=== PATIENT | female | born 1945 | race Caucasian/White ===

== ENCOUNTER 2016-12-28 11:30 | Emergency (ER) | payer MEDICARE, BC ==
[2016-12-28] MEDS ORDERED: Sodium Chloride 0.9% 10 ML Syringe FLUSH PRN (11:48)
[2016-12-28] MEDS ORDERED: Aspirin 81 MG Tab.Chew PO ONE (12:07)
--- NOTE | 2016-12-28 12:15 | EDM.PDOC ---
ED HPI GENERAL MEDICAL PROBLEM - General Chief Complaint: General Stated Complaint: shoulder pain Time Seen by Provider: 12/28/16 11:56 Source of Information: Reports: Patient History Limitations: Reports: No limitations - History of Present Illness INITIAL COMMENTS - FREE TEXT/NARRATIVE: Patient comes in by private vehicle for complaint of not feeling well. She has not felt like her usual self since Saturday evening, two days ago. At that time she noticed intermittent tightness/discomfort located across the back of her shoulders. Usually at same time she would develop bilateral arm tingling. No weakness. Symptoms would last up to 30min then resolve. Changing position/ breathing/moving did nothing to help the pain nor did it worsen it. She has felt intermittently SOB but denies feeling sweaty. No fevers. No recent illnesses/med changes/falls/trauma. She says she was a [employer] yesterday and had one episode nausea and vomiting afterwards. OK today, ate breakfast. Has felt a little lightheaded on/off but no darien dizziness. No changes. ROS otherwise negative. No history of similar issues in past. No one else sick at home. No cardiac history. Upper Shoulder Pain Score (Numeric/FACES): 5 - Related Data Allergies Allergy/AdvReac Type Severity Reaction Status Date / Time azithromycin [From Zithromax] Allergy Nausea and Verified 02/22/16 17:43 Vomiting cefprozil [From Cefzil] Allergy Nausea and Verified 02/22/16 17:43 Vomiting ciprofloxacin [From Cipro] Allergy Nausea and Verified 02/22/16 17:43 Vomiting ciprofloxacin HCl Allergy Nausea and Verified 02/22/16 17:43 [From Cipro] Vomiting methylprednisolone Allergy Nausea and Verified 02/22/16 17:43 [From Medrol] Vomiting ondansetron Allergy UNKNOWN Verified 08/14/16 14:57 [From Zofran (as hydrochloride)] Penicillins Allergy Hives Verified 02/22/16 17:43 Sulfa (Sulfonamide Allergy Nausea and Verified 02/22/16 17:43 Antibiotics) Vomiting Home Meds: Home Meds Meclizine [Antivert] 25 mg PO Q6H PRN 11/24/13 [History] Sennosides [Ex-Lax] 15 mg PO BID 11/24/13 [History] Omeprazole 20 mg PO DAILY PRN 01/11/16 [History] Levothyroxine 25 mcg PO ACBREAKFAST 12/28/16 [History] Linaclotide [Linzess] 145 mcg PO DAILY 12/28/16 [History] Nitrofurantoin Monohyd/M-Cryst [Macrobid 100 mg Capsule] 100 mg PO Q12HR #10 capsule 12/28/16 [Rx] Potassium Chloride 10 meq PO DAILY #30 tablet.er 12/28/16 [Rx] Promethazine [Phenergan] 25 mg PO Q8H PRN #6 tablet 12/28/16 [Rx] Past Medical History Gastrointestinal History: Reports: Chronic constipation Genitourinary History: Reports: Other (see below) Other Genitourinary History: history of urostomy 1984 Neurological History: Reports: Migraines Oncologic (Cancer) History: Reports: Cervix - Infectious Disease History Infectious Disease History: Reports: Chicken pox, Measles, Mumps - Past Surgical History Female Surgical History: Reports: Other (see below) Other Female Surgeries/Procedures: 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 ED EXAM, GENERAL - Physical Exam Exam: See Below Exam Limited By: No limitations General Appearance: alert, WD/WN, no apparent distress Eye Exam: bilateral eye: EOMI, PERRL Ears: normal external exam, normal canal, hearing grossly normal, normal TMs Nose: normal inspection, no blood Throat/Mouth: Normal inspection, Normal lips, Normal oropharynx, Normal voice, No airway compromise Head: atraumatic, normocephalic Neck: normal inspection, supple, non-tender, full range of motion. No: lymphadenopathy (L), lymphadenopathy (R) Respiratory/Chest: no respiratory distress, lungs clear, normal breath sounds, no accessory muscle use, chest non-tender Cardiovascular: normal peripheral pulses, regular rate, rhythm, no edema, no JVD , no murmur Peripheral Pulses: 2+: radial (L), radial (R) GI/Abdominal: normal bowel sounds, soft, non tender, no distention (Female) Exam: Deferred Rectal (Female) Exam: Deferred Back Exam: normal inspection Extremities: normal inspection, normal range of motion, non-tender, no pedal edema, normal capillary refill, other (palpation of neck/shoulders/back did not reproduce patient's complaint. ) Neurological: alert, oriented, normal cognition, normal gait, no motor/sensory deficits Psychiatric: normal affect, normal mood Skin Exam: Warm, Dry, Intact, Normal color EKG INTERPRETATION EKG Date: 12/28/16 Time: 11:32 Rhythm: NSR Rate (beats/min): 71 [place]: normal P-wave: present QRS: normal ST-T: normal QT: normal Comparison: NA - no prior EKG (sinus arrhythmia) Course - Vital Signs Last Recorded V/S: Last Vital Signs Temp 37.0 C 12/28/16 11:31 Pulse 60 12/28/16 13:40 Resp 18 12/28/16 13:40 BP 130/75 12/28/16 13:40 Pulse Ox 100 12/28/16 13:40 - Orders/Labs/Meds Orders: Active Orders 24 hr Category Date Time Status Cardiac Monitoring [RC] . DIRECTED Care 12/28/16 11:49 Active EKG Documentation Completion [RC] ASDIRECTED Care 12/28/16 11:48 Active EKG Documentation Completion [RC] URGENT Care 12/28/16 11:47 Active Oxygen Therapy, ED [RC] ASDIRECTED Care 12/28/16 11:48 Active Chest 1V Frontal [CR] Stat Exams 12/28/16 11:47 Taken CULTURE URINE [RM] Stat Lab 12/28/16 12:40 Received Saline Lock Insert [OM.PC] Routine Oth 12/28/16 11:48 Ordered Labs: Laboratory Tests 12/28/16 12/28/16 12/28/16 Range/Units 11:43 11:43 11:43 WBC 7.2 (4.0-10.2) K/uL RBC 4.42 (3.77-5.09) M/uL Hgb 13.5 (11.7-15.5) g/dL Hct 41.1 (34.0-46.0) % MCV 93.0 (84.0-98.0) fL MCH 30.5 (28.2-33.3) pg MCHC 32.8 (31.7-36.0) g/dL RDW 13.7 (11.2-14.1) % Plt Count 334 (150-350) K/uL Neut % (Auto) 59.1 (45.0-80.0) % Lymph % (Auto) 31.5 (10.0-50.0) % [place] % (Auto) 6.9 (2.0-14.0) % Eos % (Auto) 1.9 (0.0-5.0) % Baso % (Auto) 0.6 (0.0-2.0) % Neut # (Auto) 4.25 (1.40-7.00) K/uL Lymph # (Auto) 2.27 (0.50-3.50) K/uL [place] # (Auto) 0.50 (0.00-1.00) K/uL Eos # (Auto) 0.14 (0.00-0.50) K/uL Baso # (Auto) 0.04 (0.00-0.20) K/uL PT 10.7 (9.8-11.7) SEC INR 1.0 APTT 27.3 (23.5-30.0) SEC D-Dimer, Quantitative (0-400) ng/mL Sodium 140 (136-145) mmol/L Potassium 3.4 L (3.5-5.1) mmol/L Chloride 102 (98-107) mmol/L Carbon Dioxide 26.5 (21.0-32.0) mmol/L BUN 15 (7-18) mg/dL Creatinine 0.94 (0.51-1.17) mg/dL Est Cr Clr Drug Dosing 47.40 mL/min Estimated GFR (MDRD) 59 mL/min Glucose 110 H (74-106) mg/dL Lactic Acid (0.4-2.0) mmol/L Calcium 8.9 (8.5-10.1) mg/dL Magnesium 2.1 (1.8-2.4) mg/dL Total Bilirubin 0.4 (0.2-1.0) mg/dL AST 14 L (15-37) U/L ALT 22 (12-78) U/L Alkaline Phosphatase 75 (46-116) IU/L Creatine Kinase 57 (26-308) U/L Creatine Kinase Index 1.2 (0.0-2.5) % CK-MB (CK-2) 0.70 (0.00-3.60) ng/mL Troponin I 0.000 (0.000-0.056) ng/mL [id number]-Csydvxrexbg Pept 47 (0-125) pg/mL Total Protein 7.6 (6.4-8.2) g/dL Albumin 3.7 (3.4-5.0) g/dL Amylase (25-115) U/L Lipase (73-393) U/L Specimen Type Urine Color Urine Appearance Urine pH (5.0-9.0) Ur Specific [place] (1.005-1.030) Urine Protein (NEGATIVE) mg/dL Urine Glucose (UA) (NEGATIVE) mg/dL Urine Ketones (NEGATIVE) mg/dL Urine Occult Blood (NEGATIVE) Urine Nitrite (NEGATIVE) Urine Bilirubin (NEGATIVE) Urine Urobilinogen (0.2-1.0) E.U./dL Ur Leukocyte Esterase (NEGATIVE) Urine RBC /HPF Urine WBC /HPF Ur Epithelial Cells /LPF Urine Bacteria (NONE TO FEW) /HPF 12/28/16 12/28/16 12/28/16 Range/Units 11:43 11:43 11:45 WBC (4.0-10.2) K/uL RBC (3.77-5.09) M/uL Hgb (11.7-15.5) g/dL Hct (34.0-46.0) % MCV (84.0-98.0) fL MCH (28.2-33.3) pg MCHC (31.7-36.0) g/dL RDW (11.2-14.1) % Plt Count (150-350) K/uL Neut % (Auto) (45.0-80.0) % Lymph % (Auto) (10.0-50.0) % [place] % (Auto) (2.0-14.0) % Eos % (Auto) (0.0-5.0) % Baso % (Auto) (0.0-2.0) % Neut # (Auto) (1.40-7.00) K/uL Lymph # (Auto) (0.50-3.50) K/uL [place] # (Auto) (0.00-1.00) K/uL Eos # (Auto) (0.00-0.50) K/uL Baso # (Auto) (0.00-0.20) K/uL PT (9.8-11.7) SEC INR APTT (23.5-30.0) SEC D-Dimer, Quantitative 281 (0-400) ng/mL Sodium (136-145) mmol/L Potassium (3.5-5.1) mmol/L Chloride (98-107) mmol/L Carbon Dioxide (21.0-32.0) mmol/L BUN (7-18) mg/dL Creatinine (0.51-1.17) mg/dL Est Cr Clr Drug Dosing mL/min Estimated GFR (MDRD) mL/min Glucose (74-106) mg/dL Lactic Acid 1.7 (0.4-2.0) mmol/L Calcium (8.5-10.1) mg/dL Magnesium (1.8-2.4) mg/dL Total Bilirubin (0.2-1.0) mg/dL AST (15-37) U/L ALT (12-78) U/L Alkaline Phosphatase (46-116) IU/L Creatine Kinase (26-308) U/L Creatine Kinase Index (0.0-2.5) % CK-MB (CK-2) (0.00-3.60) ng/mL Troponin I (0.000-0.056) ng/mL Nzo-A-Dovsthgqflw Pept (0-125) pg/mL Total Protein (6.4-8.2) g/dL Albumin (3.4-5.0) g/dL Amylase 63 (25-115) U/L Lipase 164 (73-393) U/L Specimen Type Urine Color Urine Appearance Urine pH (5.0-9.0) Ur Specific [place] (1.005-1.030) Urine Protein (NEGATIVE) mg/dL Urine Glucose (UA) (NEGATIVE) mg/dL Urine Ketones (NEGATIVE) mg/dL Urine Occult Blood (NEGATIVE) Urine Nitrite (NEGATIVE) Urine Bilirubin (NEGATIVE) Urine Urobilinogen (0.2-1.0) E.U./dL Ur Leukocyte Esterase (NEGATIVE) Urine RBC /HPF Urine WBC /HPF Ur Epithelial Cells /LPF Urine Bacteria (NONE TO FEW) /HPF 12/28/16 Range/Units 12:20 WBC (4.0-10.2) K/uL RBC (3.77-5.09) M/uL Hgb (11.7-15.5) g/dL Hct (34.0-46.0) % MCV (84.0-98.0) fL MCH (28.2-33.3) pg MCHC (31.7-36.0) g/dL RDW (11.2-14.1) % Plt Count (150-350) K/uL Neut % (Auto) (45.0-80.0) % Lymph % (Auto) (10.0-50.0) % [place] % (Auto) (2.0-14.0) % Eos % (Auto) (0.0-5.0) % Baso % (Auto) (0.0-2.0) % Neut # (Auto) (1.40-7.00) K/uL Lymph # (Auto) (0.50-3.50) K/uL [place] # (Auto) (0.00-1.00) K/uL Eos # (Auto) (0.00-0.50) K/uL Baso # (Auto) (0.00-0.20) K/uL PT (9.8-11.7) SEC INR APTT (23.5-30.0) SEC D-Dimer, Quantitative (0-400) ng/mL Sodium (136-145) mmol/L Potassium (3.5-5.1) mmol/L Chloride (98-107) mmol/L Carbon Dioxide (21.0-32.0) mmol/L BUN (7-18) mg/dL Creatinine (0.51-1.17) mg/dL Est Cr Clr Drug Dosing mL/min Estimated GFR (MDRD) mL/min Glucose (74-106) mg/dL Lactic Acid (0.4-2.0) mmol/L Calcium (8.5-10.1) mg/dL Magnesium (1.8-2.4) mg/dL Total Bilirubin (0.2-1.0) mg/dL AST (15-37) U/L ALT (12-78) U/L Alkaline Phosphatase (46-116) IU/L Creatine Kinase (26-308) U/L Creatine Kinase Index (0.0-2.5) % CK-MB (CK-2) (0.00-3.60) ng/mL Troponin I (0.000-0.056) ng/mL Wyy-J-Xpnxxievpss Pept (0-125) pg/mL Total Protein (6.4-8.2) g/dL Albumin (3.4-5.0) g/dL Amylase (25-115) U/L Lipase (73-393) U/L Specimen Type Urin[place]ad Urine Color Yellow Urine Appearance Slightly cloudy Urine pH 5.0 (5.0-9.0) Ur Specific [place] 1.010 (1.005-1.030) Urine Protein Negative (NEGATIVE) mg/dL Urine Glucose (UA) Negative (NEGATIVE) mg/dL Urine Ketones Negative (NEGATIVE) mg/dL Urine Occult Blood Trace-lysed H (NEGATIVE) Urine Nitrite Negative (NEGATIVE) Urine Bilirubin Negative (NEGATIVE) Urine Urobilinogen 0.2 (0.2-1.0) E.U./dL Ur Leukocyte Esterase Trace H (NEGATIVE) Urine RBC 0-5 /HPF Urine WBC 10-20 H /HPF Ur Epithelial Cells Few /LPF Urine Bacteria Few (NONE TO FEW) /HPF Meds: Medications Discontinued Medications Generic Name Dose Route Start Last Admin Trade Name Freq PRN Reason Stop Dose Admin Aspirin 324 mg 12/28/16 12:07 12/28/16 12:11 Aspirin PO 12/28/16 12:08 324 mg ONETIME ONE Administration Sodium Chloride 10 ml 12/28/16 11:48 Saline Flush FLUSH ASDIRECTED PRN Keep Vein Open - Radiology Interpretation Free Text/Narrative:: Chest film unremarkable for acute changes. - Re-Assessments/Exams Free Text/Narrative Re-Assessment/Exam: WBC, DDimer, Troponin, Chem, Amylase, Lipase, EKG, UA performed. All overall unremarkable except for mildly decreased K and 10-20 WBC per HPF (UA). Symptoms possibly secondary to early/mild UTI. Cannot rule out other possible causes however. Plan at this time is to treat UTI with Macrobid and have patient monitor symptoms for change. Patient agreeable with plan. Recommended follow up in a week for recheck of K. She is to follow up if she has worsening symptoms or if not improved by Saturday. Departure - Departure Time of Disposition: 13:44 Disposition: Home, Self-Care 01 Condition: good Clinical Impression: UTI (urinary tract infection) Nausea & vomiting Qualifiers: Vomiting type: unspecified Vomiting Intractability: unspecified Qualified Code( s): R11.2 - Nausea with vomiting, unspecified Prescriptions: Nitrofurantoin Monohyd/M-Cryst [Macrobid 100 mg Capsule] 100 mg PO Q12HR #10 capsule Potassium Chloride 10 meq PO DAILY #30 tablet.er Promethazine [Phenergan] 25 mg PO Q8H PRN #6 tablet PRN Reason: Nausea Referrals: Radha Armstrong PA [Primary Care Provider] - Forms: ED Department Discharge Additional Instructions: See if symptoms improve over the next few days. If they worsen, follow up in ER or at clinic. If symptoms are not gone by Saturday, follow up at clinic. Watch for changing symptoms that may indicate something other than UTI as cause of problem. - My Orders Last 24 Hours: My Active Orders 12/28/16 11:47 EKG Documentation Completion [RC] URGENT Chest 1V Frontal [CR] Stat 12/28/16 11:48 EKG Documentation Completion [RC] ASDIRECTED Oxygen Therapy, ED [RC] ASDIRECTED Saline Lock Insert [OM.PC] Routine 12/28/16 11:49 Cardiac Monitoring [RC] . DIRECTED 12/28/16 12:40 CULTURE URINE [RM] Stat - Assessment/Plan Last 24 Hours: My Active Orders 12/28/16 11:47 EKG Documentation Completion [RC] URGENT Chest 1V Frontal [CR] Stat 12/28/16 11:48 EKG Documentation Completion [RC] ASDIRECTED Oxygen Therapy, ED [RC] ASDIRECTED Saline Lock Insert [OM.PC] Routine 12/28/16 11:49 Cardiac Monitoring [RC] . DIRECTED 12/28/16 12:40 CULTURE URINE [RM] Stat
[2016-12-28 15:20] VITALS: BP 130/75
== END 2016-12-28 14:05 | disposition home or self-care (01) ==
LOC: LL.ED 11:30
DX: N39.0 Urinary tract infection, site not specified (principal); R11.2 Nausea with vomiting, unspecified; G43.909 Migraine, unspecified, not intractable, without status migrainosus; Z88.1 Allergy status to other antibiotic agents; Z88.2 Allergy status to sulfonamides; Z88.5 Allergy status to narcotic agent; Z88.0 Allergy status to penicillin; Z88.8 Allergy status to other drugs, medicaments and biological substances; Z98.890 Other specified postprocedural states
CPT/HCPCS: 36000; 36415; 71010; 80053; 81001; 82150; 82550; 82553; 83605; 83690; 83735; 83880; 84484; 85025; 85379; 85610; 85730; 87086; 87088; 87186; 93005; 99284; A9270; 99283

== ENCOUNTER 2017-11-10 17:07 | Emergency (ER) | payer MEDICARE, BC ==
[2017-11-10 17:18] VITALS: BP 128/78
[2017-11-10] MEDS ORDERED: Sodium Chloride 0.9% 10 ML Syringe FLUSH PRN (17:51)
--- NOTE | 2017-11-10 17:58 | EDM.PDOC ---
ED HPI GENERAL MEDICAL PROBLEM - General Chief Complaint: General Stated Complaint: vomiting, chills, body aches, fever Time Seen by Provider: 11/10/17 17:54 Source of Information: Reports: Patient, Family () - History of Present Illness INITIAL COMMENTS - FREE TEXT/NARRATIVE: Patient 72-year-old who states that yesterday she started not feeling well she started having body aches fever chills frequency with discomfort nausea and vomiting was brought in by for evaluation last emesis was about an hour ago Onset: Gradual Duration: Hour(s):, Getting Worse Location: Reports: Head (Pounding headaches today), Abdomen (Denies diarrhea but nausea and vomiting) Quality: Reports: Ache, Throbbing Severity: Moderate Improves with: Reports: None Worsens with: Reports: Movement Context: Reports: Other (Illness) Associated Symptoms: Reports: Fever/Chills, Headaches, Loss of Appetite, Nausea/ Vomiting headache Pain Score (Numeric/FACES): 10 - Related Data Allergies Allergy/AdvReac Type Severity Reaction Status Date / Time azithromycin [From Zithromax] Allergy Nausea and Verified 11/10/17 17:18 Vomiting cefprozil [From Cefzil] Allergy Nausea and Verified 11/10/17 17:18 Vomiting ciprofloxacin [From Cipro] Allergy Nausea and Verified 11/10/17 17:18 Vomiting ciprofloxacin HCl Allergy Nausea and Verified 11/10/17 17:18 [From Cipro] Vomiting methylprednisolone Allergy Nausea and Verified 11/10/17 17:18 [From Medrol] Vomiting ondansetron Allergy UNKNOWN Verified 11/10/17 17:18 [From Zofran (as hydrochloride)] Penicillins Allergy Hives Verified 11/10/17 17:18 Sulfa (Sulfonamide Allergy Nausea and Verified 11/10/17 17:18 Antibiotics) Vomiting Home Meds: Home Meds Meclizine [Antivert] 25 mg PO Q6H PRN 11/24/13 [History] Levothyroxine 25 mcg PO ACBREAKFAST 12/28/16 [History] Linaclotide [Linzess] 145 mcg PO DAILY PRN 12/28/16 [History] Promethazine [Phenergan] 25 mg PO Q8H PRN #6 tablet 12/28/16 [Rx] Past Medical History HEENT History: Reports: Impaired Vision, Other (See Below) Other HEENT History: wears glasses, Gastrointestinal History: Reports: Chronic Constipation Genitourinary History: Reports: Other (See Below) Other Genitourinary History: history of urostomy 1985 Neurological History: Reports: Migraines, Vertigo Oncologic (Cancer) History: Reports: Cervix - Infectious Disease History Infectious Disease History: Reports: Chicken Pox, Measles, Mumps - Past Surgical History HEENT Surgical History: Reports: Other (See Below) Other HEENT Surgeries/Procedures: sinus surgery GI Surgical History: Reports: Appendectomy Female Surgical History: Reports: Hysterectomy, Oophorectomy, Other (See Below) Other Female Surgeries/Procedures: cervical cancer, pt has only one remaining ovary Social & Family History - Tobacco Use Smoking Status *Q: Never Smoker Second Hand Smoke Exposure: No - Caffeine Use Caffeine Use: Reports: Coffee - Alcohol Use Days Per Week of Alcohol Use: 0 - Recreational Drug Use Recreational Drug Use: No ED ROS GENERAL - Review of Systems Review Of Systems: See Below ED EXAM, GENERAL - Physical Exam Exam: See Below Course - Vital Signs Last Recorded V/S: Last Vital Signs Temp 97.8 F 11/10/17 17:08 Pulse 111 H 11/10/17 17:08 Resp 16 11/10/17 17:08 BP 128/78 11/10/17 17:08 Pulse Ox 99 11/10/17 17:08 - Orders/Labs/Meds Orders: Active Orders 24 hr Category Date Time Status Sodium Chloride 0.9% [Normal Saline] 1,000 ml Med 11/10/17 19:15 Active IV ASDIRECTED Sodium Chloride 0.9% [Saline Flush] Med 11/10/17 17:51 Active 10 ml FLUSH ASDIRECTED PRN cefTRIAXone [Rocephin] 1 gm Med 11/10/17 20:00 Ordered Sodium Chloride 0.9% [Normal Saline] 100 ml IV Q24H Saline Lock Insert [OM.PC] Stat Oth 11/10/17 17:51 Ordered Medication Orders Sodium Chloride (Normal Saline) 1,000 mls @ 500 mls/hr IV ASDIRECTED THANH Ceftriaxone Sodium 1 gm/ (Sodium Chloride) 100 mls @ 200 mls/hr IV Q24H THANH Sodium Chloride (Saline Flush) 10 ml FLUSH ASDIRECTED PRN PRN Reason: Keep Vein Open Last Admin: 11/10/17 18:18 Dose: 10 ml Labs: Laboratory Tests 11/10/17 11/10/17 11/10/17 Range/Units 18:05 18:05 18:25 WBC 13.5 H (4.0-10.2) K/uL RBC 4.01 (3.77-5.09) M/uL Hgb 12.6 D (11.7-15.5) g/dL Hct 37.1 (34.0-46.0) % MCV 92.5 (84.0-98.0) fL MCH 31.4 (28.2-33.3) pg MCHC 34.0 (31.7-36.0) g/dL RDW 12.7 (11.2-14.1) % Plt Count 261 (150-350) K/uL Neut % (Auto) 89.9 H (45.0-80.0) % Lymph % (Auto) 6.6 L (10.0-50.0) % [place] % (Auto) 3.3 (2.0-14.0) % Eos % (Auto) 0.1 (0.0-5.0) % Baso % (Auto) 0.1 (0.0-2.0) % Neut # (Auto) 12.17 H (1.40-7.00) K/uL Lymph # (Auto) 0.89 (0.50-3.50) K/uL [place] # (Auto) 0.45 (0.00-1.00) K/uL Eos # (Auto) 0.02 (0.00-0.50) K/uL Baso # (Auto) 0.01 (0.00-0.20) K/uL Sodium 134 L (136-145) mmol/L Potassium 3.9 (3.5-5.1) mmol/L Chloride 100 (98-107) mmol/L Carbon Dioxide 26.6 (21.0-32.0) mmol/L BUN 15 (7-18) mg/dL Creatinine 0.89 (0.51-1.17) mg/dL Est Cr Clr Drug Dosing 49.34 mL/min Estimated GFR (MDRD) > 60 mL/min Glucose 119 H (74-106) mg/dL Calcium 9.2 (8.5-10.1) mg/dL Total Bilirubin 0.9 (0.2-1.0) mg/dL AST 16 (15-37) U/L ALT 17 (12-78) U/L Alkaline Phosphatase 66 (46-116) IU/L Total Protein 7.4 (6.4-8.2) g/dL Albumin 3.4 (3.4-5.0) g/dL Specimen Type Urincc Urine Color Yellow Urine Appearance Slightly cloudy Urine pH 7.0 (5.0-9.0) Ur Specific [place] 1.020 (1.005-1.030) Urine Protein Negative (NEGATIVE) mg/dL Urine Glucose (UA) Negative (NEGATIVE) mg/dL Urine Ketones 15 H (NEGATIVE) mg/dL Urine Occult Blood Small H (NEGATIVE) Urine Nitrite Negative (NEGATIVE) Urine Bilirubin Negative (NEGATIVE) Urine Urobilinogen 0.2 (0.2-1.0) E.U./dL Ur Leukocyte Esterase Negative (NEGATIVE) Urine RBC 5-10 H /HPF Urine WBC 5-10 H /HPF Ur Epithelial Cells Few /LPF Urine Bacteria Few (NONE TO FEW) /HPF Urine Mucus Few H (NEGATIVE) /LPF Meds: Medications Generic Name Dose Route Start Last Admin Trade Name Freq PRN Reason Stop Dose Admin Sodium Chloride 1,000 mls @ 500 mls/hr 11/10/17 19:15 Normal Saline IV ASDIRECTED THANH Ceftriaxone Sodium 1 gm/ 100 mls @ 200 mls/hr 11/10/17 20:00 Sodium Chloride IV Q24H THANH Sodium Chloride 10 ml 11/10/17 17:51 11/10/17 18:18 Saline Flush FLUSH 10 ml ASDIRECTED PRN Administration Keep Vein Open Discontinued Medications Generic Name Dose Route Start Last Admin Trade Name Freq PRN Reason Stop Dose Admin Sodium Chloride 1,000 mls @ 250 mls/hr 11/10/17 18:00 11/10/17 18:11 Normal Saline IV 250 mls/hr ASDIRECTED THANH Administration Promethazine HCl 12.5 mg/ 100.5 mls @ 400 mls/hr 11/10/17 18:08 11/10/17 18: 12 Sodium Chloride IV 11/10/17 18:23 400 mls/hr ONETIME ONE Administration Ketorolac Tromethamine 15 mg 11/10/17 19:02 11/10/17 19:10 Toradol IVPUSH 11/10/17 19:03 15 mg ONETIME ONE Administration Departure - Departure Time of Disposition: 20:03 Disposition: Home, Self-Care 01 Condition: Fair Clinical Impression: Dehydration, UTI, Urinary tract infectious disease - Discharge Information Instructions: Nausea and Vomiting, Adult Referrals: Radha Armstrong PA [Primary Care Provider] - Forms: ED Department Discharge Care Plan Goals: Patient allergic to most antibiotics will give her Rocephin 1 g IM daily for 3 days also patient will be given Phenergan for nausea vomiting 25 mg 1 tablet every 6 hours when necessary - My Orders Last 24 Hours: My Active Orders 11/10/17 17:51 Sodium Chloride 0.9% [Saline Flush] 10 ml FLUSH ASDIRECTED PRN Saline Lock Insert [OM.PC] Stat 11/10/17 19:15 Sodium Chloride 0.9% [Normal Saline] 1,000 ml IV ASDIRECTED 11/10/17 20:00 cefTRIAXone [Rocephin] 1 gm Sodium Chloride 0.9% [Normal Saline] 100 ml IV Q24H - Assessment/Plan Last 24 Hours: My Active Orders 11/10/17 17:51 Sodium Chloride 0.9% [Saline Flush] 10 ml FLUSH ASDIRECTED PRN Saline Lock Insert [OM.PC] Stat 11/10/17 19:15 Sodium Chloride 0.9% [Normal Saline] 1,000 ml IV ASDIRECTED 11/10/17 20:00 cefTRIAXone [Rocephin] 1 gm Sodium Chloride 0.9% [Normal Saline] 100 ml IV Q24H
[2017-11-10] MEDS ORDERED: Sodium Chloride 0.9% 1,000 ML IV SCH ×2 (18:00→19:15)
[2017-11-10] MEDS ORDERED: Promethazine 12.5 MG in Sodium Chloride 0.9% 100 ML IV ONE (18:08)
[2017-11-10 18:29] LABS: CHLORIDE,CL 100 mmol/L (98-107); SODIUM,NA 134 mmol/L (136-145)
[2017-11-10] MEDS ORDERED: Ketorolac 30 MG/ML SDV IVPUSH ONE (19:02)
[2017-11-10] MEDS ORDERED: cefTRIAXone 1 GM in Sodium Chloride 0.9% 100 ML IV SCH (20:00)
== END 2017-11-10 21:20 | disposition home or self-care (01) ==
LOC: LL.ED 17:07
DX: E86.0 Dehydration (principal); N39.0 Urinary tract infection, site not specified; Z88.1 Allergy status to other antibiotic agents; Z88.0 Allergy status to penicillin; Z88.2 Allergy status to sulfonamides; Z88.8 Allergy status to other drugs, medicaments and biological substances; Z79.899 Other long term (current) drug therapy
CPT/HCPCS: 36000; 36415; 80053; 81001; 85025; 96361; 96365; 96367; 96375; 99284; J0696; J1885; J2550; J7030; J7050; 99283

== ENCOUNTER 2018-03-04 15:25 | Observation (INO) | payer MEDICARE, BC ==
[2018-03-04] MEDS ORDERED: Famotidine 20 MG/2 ML SDV IVPUSH ONE (15:33)
[2018-03-04] MEDS ORDERED: Aspirin 81 MG Tab.Chew CHEW ONE (15:33)
[2018-03-04] MEDS ORDERED: Sodium Chloride 0.9% 10 ML Syringe FLUSH PRN ×2 (15:33→19:14)
[2018-03-04] MEDS ORDERED: Ticagrelor 90 MG Tab PO ONE (15:33)
--- NOTE | 2018-03-04 15:33 | EDM.PDOC ---
ED HPI GENERAL MEDICAL PROBLEM - General Chief Complaint: Chest Pain Stated Complaint: CHEST PAIN Time Seen by Provider: 03/04/18 15:25 Source of Information: Reports: Patient, Family (Sister), Old Records ([facility] chart/EMR) History Limitations: Reports: No Limitations - History of Present Illness INITIAL COMMENTS - FREE TEXT/NARRATIVE: The patient was brought to the emergency room via private automobile by her sister for evaluation of 04/08 retrosternal chest pressure associated with nonspecific fever and chills and possible mild diaphoresis with symptoms starting at about 4 AM this morning. Her chest pain did radiate to her neck, shoulders bilaterally, and mid posterior thoracic region with some bilateral paresthesias. The patient denies any heart flutter, dizziness, orthostasis, orthopnea, recent decreased exercise tolerance, or any other anginal-type symptoms. No recent history of abdominal pain, heartburn, nausea, diarrhea, melena, gross hematochezia, or any food intolerance, including fatty foods, etc.. She denies any recent gross hematuria, colic, or other UTI symptoms. The patient also denies any recent cough, wheezing, dyspnea, etc.. No history of recent headaches, visual changes, diplopia, change in mental status, or other change in neurological status. Onset: Today, Gradual Onset Date: 03/04/18 Onset Time: 04:00 Duration: Constant, Getting Worse Location: Reports: Neck, Chest, Back, Upper Extremity, Left, Upper Extremity, Right, Radiates to (As above). Denies: Head, Face, Abdomen, Pelvis Quality: Reports: Pressure Severity: Moderate Improves with: Reports: None Worsens with: Reports: None Context: Reports: Other (As above) Associated Symptoms: Reports: Chest Pain, Diaphoresis, Fever/Chills ( Temperature not measured). 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 SAFETY MANAGER: Reports: Other (see below) (None) Middle Chest Pain Score (Numeric/FACES): 7 - Related Data Allergies Allergy/AdvReac Type Severity Reaction Status Date / Time azithromycin [From Zithromax] Allergy Nausea and Verified 11/10/17 17:18 Vomiting cefprozil [From Cefzil] Allergy Nausea and Verified 11/10/17 17:18 Vomiting ciprofloxacin [From Cipro] Allergy Nausea and Verified 11/10/17 17:18 Vomiting ciprofloxacin HCl Allergy Nausea and Verified 11/10/17 17:18 [From Cipro] Vomiting methylprednisolone Allergy Nausea and Verified 11/10/17 17:18 [From Medrol] Vomiting ondansetron Allergy UNKNOWN Verified 11/10/17 17:18 [From Zofran (as hydrochloride)] Penicillins Allergy Hives Verified 11/10/17 17:18 Sulfa (Sulfonamide Allergy Nausea and Verified 11/10/17 17:18 Antibiotics) Vomiting Home Meds: Home Meds Meclizine [Antivert] 25 mg PO Q6H PRN 11/24/13 [History] Levothyroxine 25 mcg PO ACBREAKFAST 12/28/16 [History] Linaclotide [Linzess] 145 mcg PO DAILY PRN 12/28/16 [History] Promethazine [Phenergan] 25 mg PO Q8H PRN #6 tablet 12/28/16 [Rx] Past Medical History HEENT History: Reports: Allergic Rhinitis, Impaired Vision, Other (See Below). Denies: Cataract, Glaucoma, Macular Degeneration, Retinal Detachment Other HEENT History: Patient wears glasses. Cardiovascular History: Reports: CAD, High Cholesterol, Syncope, Other (See Below). Denies: Afib, Aneurysm, Arrhythmia, Blood Clots/VTE/DVT, Heart Failure , Heart Murmur, Hypertension, NC, PVD Other Cardiovascular History: Moderate to severe hyperlipidemia. Near syncopal episode in 2010 Respiratory History: Reports: None, Intubation, Previous. Denies: Asthma, Bronchitis, Recurrent, COPD, Intubation, Difficult, PE, Pneumonia, Recurrent, Pneumothorax, Sleep Apnea, TB Gastrointestinal History: Reports: Chronic Constipation, Gastritis, GERD, Other (See Below). Denies: Celiac Disease, Cholelithiasis, Colon Polyp, Diverticulosis, Fecal Incontinence, GI Bleed, Helicobacter Pylori, Irritable Bowel Syndrome, PUD Other Gastrointestinal History: GERD with gastritis and esophagitis. 9 hepatic cyst Genitourinary History: Reports: UTI, Recurrent. 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 Denies: Dysfunctional Uterine Bleeding, Endometriosis, Fibroids : 4 Para: 4 LMP (Approximate): Other (See Below) Other OB/BYN History: Full term without complications during pregnancies or deliveries. Surgical menopause as below. Right ovarian cyst. History of cervical cancer as below with no radiation or chemotherapy required Musculoskeletal History: Reports: Arthritis, Back Pain, Chronic, Osteoarthritis , Osteoporosis, Other (See Below). Denies: Amputation, Fracture, Gout, Neck Pain, Chronic, RA, SLE Other Musculoskeletal History: Scoliosis. Neurological History: Reports: Headaches, Chronic, Migraines, Vertigo, Other ( See Below). 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 Denies: Abuse, Victim of, ADD, ADHD, Addiction, Psych Hospitalization(s), PTSD, Suicide Attempt, Suicidal Ideation Endocrine/Metabolic History: Reports: Hypothyroidism, Osteopenia, Osteoporosis. Denies: Diabetes, Gestational, Diabetes, Type I, Diabetes, Type II, Diabetes Mellitus, Type 3c, IDDM Hematologic History: Reports: Anemia, Blood Transfusion(s), Other (See Below) Other Hematologic History: Transfusion of 2 units of packed red blood cells post hysterectomy. Immunologic History: Reports: None. Denies: AIDS, HIV, Immunosuppression, SLE Oncologic (Cancer) History: Reports: Cervix, Other (See Below). Denies: Basal Cell Carcinoma, Breast, Colon, Hodgkin's Lymphoma, Leukemia, Lymphoma, Malignant Melanoma, Metastatic, Non-Hodgkin's Lymphoma, Ovarian, Squamous Cell Carcinoma, Uterine Other Oncologic History: Cervical cancer as above with hysterectomy as below required. Dermatologic History: Reports: None. Denies: Eczema, Psoriasis - Infectious Disease History Infectious Disease History: Reports: Chicken Pox, Measles, Mumps. Denies: C- Difficile, Helicobacter Pylori, Meningitis, Mononucleosis, MRSA, Pertussis ( Whooping Cough), Rubella, Scarlet Fever, Shingles, TB, VRE - Past Surgical History Head Surgeries/Procedures: Reports: None HEENT Surgical History: Reports: Naso-Sinus Surgery, Oral Surgery, Other (See Below). Denies: Adenoidectomy, Cataract Surgery, Detached Retina, Eye Surgery, Laser Surgery, LASIK, Myringotomy w Tube(s), Tonsillectomy Other HEENT Surgeries/Procedures: [place] teeth extraction 4 in the 1980s. Sinus surgery in September 2015. Cardiovascular Surgical History: Reports: None. Denies: Varicose Respiratory Surgical History: Reports: None. Denies: Thoracentesis GI Surgical History: Reports: Appendectomy, Colonoscopy, EGD, Other (See Below) . Denies: Cholecystectomy, Hernia, Abdominal, Hernia, Inguinal, Hernia Repair/ Other, Polypectomy Other GI Surgeries/Procedures: Appendectomy and abdominal exploratory surgery at age 17. Rectal fissure repair in about 2006. EGD was negative H. pylori biopsy and concurrent colonoscopy on 10/25/11 Female Surgical History: Reports: Hysterectomy, Oophorectomy, Tubal Ligation , Other (See Below). Denies: Breast Biopsy, D&C Other Female Surgeries/Procedures: Complete hysterectomy with left-sided nephrectomy secondary to cervical cancer at the [facility] in June 1985. Bilateral tubal ligation in 1980. Urostomy in 1984 Endocrine Surgical History: Reports: None. Denies: Thyroid Biopsy Neurological Surgical History: Reports: None. Denies: C-Spine, Discectomy, Intracranial, Laminectomy, Lumbar Spine, Sacral Spine, Scoliosis, Spinal Fusion , Thoracic Spine, Vertebroplasty Musculoskeletal Surgical History: Reports: None. Denies: Arthroscopic Procedure , Carpal Tunnel, Ganglion Cyst, Joint Replacement, ORIF, Shoulder Surgery Oncologic Surgical History: Reports: None Dermatological Surgical History: Reports: None - Past Imaging History Past Imaging History: Reports: Carotid US (06/28/16), CAT Scan (CT of the sinuses on 08/20/13. CT of the head on 06/28/16, 02/22/16, and 11/24/13. CTA of the chest on 02/14/16. CT of the abdomen and pelvis on 02/14/16.), MRA (MRA of the brain and neck on 12/01/13), MRI (MRI of the brain on 12/01/13), Stress Testing (Cardiolite stress test on 06/25/13 with ejection fraction of 69% with previous evaluation on 11/23/10.), Ultrasound (Bladder ultrasound on 03/17/13. Left breast ultrasound on 11/08/11.) Social & Family History - Family History HEENT: Reports: Allergic Rhinitis, Cataract, Macular Degeneration, Other (See Below) Other HEENT Family History: Father with nasal polyps and allergic rhinitis. Father with macular degeneration. Mother with cataracts. Cardiac: Reports: Bypass, CAD, Heart Failure, High Cholesterol, Hypertension, Other (See Below). Denies: Afib, Aneurysm, Arrhythmia, Blood Clots/VTE/DVT, Heart Murmur, NC, Syncope Other Cardiac Family History: Mother with four-vessel CABG at age 80 with fatal CHF at age 89. No history of NC. Hyperlipidemia in 3 brothers and 1 sister. 2 brothers with hypertension. Respiratory: Reports: None. Denies: Asthma, COPD, PE, Pneumothorax, Sleep Apnea GI: Reports: Inflammatory Bowel Disease, Pancreatitis, Other (See Below). Denies: Celiac Disease, Cholelithiasis, Colon Polyps, GERD, GI bleed Other GI Family History: Daughter with ulcerative colitis. Pancreatic cancer with pancreatitis in 2 maternal great aunts as below. : Reports: None. Denies: Dialysis, Renal Calculus, Renal Disease/ Insufficiency OBGYN: Reports: None. Denies: Endometriosis, Fibroids, Recurrent Spontaneous Musculoskeletal: Reports: Arthritis, Osteoarthritis. Denies: RA, SLE Neurological: Reports: CVA, Other (See Below) Other Neurological Family History: Paternal grandfather with CVA in his 70s fatal secondary to subsequent complications a few years later. Psychiatric: Reports: None. Denies: Abuse, Victim of, ADD, ADHD, Anxiety, Bipolar, Psych Hospitalization(s), PTSD, Suicide Attempt Endocrine/Metabolic: Reports: Diabetes, type II, Other (See Below). Denies: Diabetes, Gestational, Diabetes, Type I, Diabetes Mellitus, Type 3c, Hypothyroidism, IDDM Other Endocrine/Metabolic Family History: Brother with diabetes mellitus Hematologic: Reports: None. Denies: Anemia, SLE Immunologic: Reports: None. Denies: AIDS, HIV, SLE Dermatologic: Reports: None. Denies: Eczema, Psoriasis Oncologic: Reports: Metastatic, Pancreatic, Skin, Other (See Below) Other Oncologic Family History: Maternal grandfather from unknown type of cancer possibly hepatic with secondary pulmonary metastases fatal in his 60s. He did use tobacco. 2 paternal uncles with unknown type of fatal cancer in their 60s although one with apparent bone cancer and another with unknown primary but metastatic in nature. Maternal great aunts 2 with fatal pancreatic cancer in their 90s. Brother with unknown type of skin cancer. - Tobacco Use Smoking Status *Q: Never Smoker Tobacco Use Within Last Twelve Months: No Used Tobacco, but Quit: No Smoking Cessation Information Provided To Patient: No Second Hand Smoke Exposure: No Second Hand Smoke Education Provided: No - Caffeine Use Caffeine Use: Reports: Coffee (10 cups per day), Soda (1 soda per week). Denies : Energy Drinks, Tea - Alcohol Use Alcohol Use History: Yes Days Per Week of Alcohol Use: 0 Number of Drinks Per Day: 1 Total Drinks Per Week: 0 Total Drinks Per Week Comment: One beer usually for holidays. No previous DWIs, problems with alcohol abuse, etc. Alcohol Use in Last Twelve Months: Yes Alcohol Use Frequency: Rarely - Recreational Drug Use Recreational Drug Use: No Drug Use in Last 12 Months: No Recreational Drug Type: Denies: Amphetamines (Speed), Cocaine, Heroin, Inhalants (Glues, Solvents, Aerosols), LSD (Acid), Marijuana/Hashish, Methamphetamine, Morphine, Oxycodone - Living Situation & Occupation Living situation: Reports: (1972, 4 children) Occupation: Retired (Retired from [employer] at age 59) ED ROS GENERAL - Review of Systems Review Of Systems: ROS reveals no pertinent complaints other than HPI. ED EXAM, GENERAL - Physical Exam Exam: See Below Exam Limited By: No Limitations General Appearance: Alert, WD/WN, No Apparent Distress Eye Exam: Bilateral Eye: EOMI, Normal Inspection (No Nystagmus. Patient wearing glasses), PERRL Ears: Normal External Exam, Normal Canal, Hearing Grossly Normal, Normal TMs Nose: Normal Inspection, Normal Mucosa, No Blood Throat/Mouth: Normal Inspection, Normal Lips, Normal Teeth, Normal Gums, Normal Oropharynx, Normal Voice, No Airway Compromise. No: Dysphagia, Perioral Cyanosis Head: Atraumatic, Normocephalic. No: Facial Swelling, Facial Tenderness, Sinus Tenderness Neck: Supple, Non-Tender, Full Range of Motion, Carotid Bruit (Borderline mild carotid bruits). No: Lymphadenopathy (L), Lymphadenopathy (R), Thyromegaly Respiratory/Chest: No Respiratory Distress, Lungs Clear, Normal Breath Sounds, No Accessory Muscle Use, Chest Non-Tender. No: Rales, Pleural Rub, Retractions Cardiovascular: Normal Peripheral Pulses, Regular Rate, Rhythm, No Edema, No Gallop, No JVD, No Murmur, No Rub. No: Gallop/S3, Gallop/S4, Friction Rub Peripheral Pulses: 2+: Radial (L), Radial (R), Dorsalis Pedis (L), Dorsalis Pedis (R) GI/Abdominal: Normal Bowel Sounds, Soft, Non-Tender, No Organomegaly, No Distention, No Abnormal Bruit, No Mass, Pelvis Stable. No: Guarding (Female) Exam: Deferred Rectal (Female) Exam: Deferred Back Exam: Normal Inspection, Full Range of Motion, Other (Mild scoliosis). No : CVA Tenderness (L), CVA Tenderness (R), Muscle Spasm Extremities: Normal Inspection, Normal Range of Motion, Non-Tender, No Pedal Edema, Normal Capillary Refill. No: Rusty's Sign Neurological: Alert, Oriented, CN II-XII Intact, Normal Cognition, Normal Gait, Normal Reflexes (Negative Babinski's), No Motor/Sensory Deficits Psychiatric: Normal Affect, Normal Mood Skin Exam: Warm, Dry, Intact, Normal Color, No Rash. No: Lymphangitis, Wound/ Incision Lymphatic: No Adenopathy EKG INTERPRETATION EKG Date: 03/04/18 Time: 15:41 Rhythm: NSR Rate (Beats/Min): 65 [place]: Normal (Neutral) P-Wave: Present (Diffuse biphasic P waves mild. Pulmonary hypertension by EKG) QRS: Normal (QRS interval of 0.07 seconds with new T-wave inversions in leads V1 and V2) ST-T: Other (As above) QT: Normal ME/PQ Interval: 0.18 seconds Comparison: Change From Previous EKG (As above since 02/28/16) EKG Interpretation Comments: 1. New anterior wall cardiac ischemia 2. Pulmonary hypertension by EKG 3. Left atrial enlargement Course - Vital Signs Last Recorded V/S: Last Vital Signs Temp 36.7 C 03/04/18 15:25 Pulse 65 03/04/18 16:45 Resp 16 03/04/18 16:58 BP 137/68 03/04/18 16:58 Pulse Ox 100 03/04/18 16:58 Vital Signs - 24 hr 03/04/18 03/04/18 03/04/18 15:25 15:30 15:45 Temperature [ 36.7 C Oral] Pulse, 76 71 72 Peripheral [ Pulse Oximetry] Respiratory 18 18 20 Rate Blood Pressure 155/78 H 138/67 124/66 [Left Arm] O2 Sat by Pulse 98 99 100 Oximetry 03/04/18 03/04/18 03/04/18 16:15 16:30 16:45 Temperature [ Oral] Pulse, 67 70 65 Peripheral [ Pulse Oximetry] Respiratory 16 17 20 Rate Blood Pressure 140/64 144/71 H 136/69 [Left Arm] O2 Sat by Pulse 100 100 100 Oximetry - Orders/Labs/Meds Orders: Active Orders 24 hr Category Date Time Status Cardiac Monitoring [RC] . DIRECTED Care 03/04/18 15:33 Active EKG Documentation Completion [RC] ASDIRECTED Care 03/04/18 15:33 Active Oxygen Therapy, ED [RC] CONTINUOUS Care 03/04/18 15:33 Active Peripheral IV Care [RC] . DIRECTED Care 03/04/18 15:33 Active Pulse Oximetry [RC] CONTINUOUS Care 03/04/18 15:33 Active Up With Assistance [RC] PFP Care 03/04/18 15:33 Active Vital Signs [RC] PFP Care 03/04/18 15:33 Active Nothing per Oral Now Diet [DIET] Diet 03/04/18 Breakfast Active Chest 1V Frontal [CR] Stat Exams 03/04/18 15:33 Taken Sodium Chloride 0.9% [Saline Flush] Med 03/04/18 15:33 Active 10 ml FLUSH ASDIRECTED PRN Obtain Past Medical Record [OM.PC] Urgent Oth 03/04/18 15:33 Active Peripheral IV Insertion Adult [OM.PC] Stat Oth 03/04/18 15:33 Ordered Resuscitation Status Stat Resus Stat 03/04/18 15:33 Ordered Medication Orders Sodium Chloride (Saline Flush) 10 ml FLUSH ASDIRECTED PRN PRN Reason: Keep Vein Open Labs: Laboratory Tests 03/04/18 03/04/18 03/04/18 Range/Units 15:35 15:35 15:35 WBC 6.4 (4.0-10.2) K/uL RBC 4.28 (3.77-5.09) M/uL Hgb 13.2 (11.7-15.5) g/dL Hct 39.4 (34.0-46.0) % MCV 92.1 (84.0-98.0) fL MCH 30.8 (28.2-33.3) pg MCHC 33.5 (31.7-36.0) g/dL RDW 13.5 (11.2-14.1) % Plt Count 315 (150-350) K/uL Neut % (Auto) 50.5 (45.0-80.0) % Lymph % (Auto) 39.1 (10.0-50.0) % [place] % (Auto) 8.9 (2.0-14.0) % Eos % (Auto) 0.9 (0.0-5.0) % Baso % (Auto) 0.6 (0.0-2.0) % Neut # (Auto) 3.22 (1.40-7.00) K/uL Lymph # (Auto) 2.50 (0.50-3.50) K/uL [place] # (Auto) 0.57 (0.00-1.00) K/uL Eos # (Auto) 0.06 (0.00-0.50) K/uL Baso # (Auto) 0.04 (0.00-0.20) K/uL PT 10.4 (9.8-11.7) SEC INR 1.0 APTT 26.5 (22.1-29.8) SEC D-Dimer, Quantitative 272 (0-400) ng/mL Sodium (136-145) mmol/L Potassium (3.5-5.1) mmol/L Chloride (98-107) mmol/L Carbon Dioxide (21.0-32.0) mmol/L BUN (7-18) mg/dL Creatinine (0.51-1.17) mg/dL Est Cr Clr Drug Dosing Estimated GFR (MDRD) mL/min Glucose (74-106) mg/dL Lactic Acid (0.4-2.0) mmol/L Uric Acid (2.6-7.2) mg/dL Calcium (8.5-10.1) mg/dL Magnesium (1.8-2.4) mg/dL Total Bilirubin (0.2-1.0) mg/dL AST (15-37) U/L ALT (12-78) U/L Alkaline Phosphatase (46-116) IU/L Creatine Kinase (26-308) U/L Creatine Kinase Index (0.0-2.5) % CK-MB (CK-2) (0.00-3.60) ng/mL Troponin I (0.000-0.056) ng/mL NT-Pro-B Natriuret Pep (0-125) pg/mL Total Protein (6.4-8.2) g/dL Albumin (3.4-5.0) g/dL TSH, Ultra Sensitive (0.358-3.740) mIU/mL 03/04/18 03/04/18 Range/Units 15:35 15:35 WBC (4.0-10.2) K/uL RBC (3.77-5.09) M/uL Hgb (11.7-15.5) g/dL Hct (34.0-46.0) % MCV (84.0-98.0) fL MCH (28.2-33.3) pg MCHC (31.7-36.0) g/dL RDW (11.2-14.1) % Plt Count (150-350) K/uL Neut % (Auto) (45.0-80.0) % Lymph % (Auto) (10.0-50.0) % [place] % (Auto) (2.0-14.0) % Eos % (Auto) (0.0-5.0) % Baso % (Auto) (0.0-2.0) % Neut # (Auto) (1.40-7.00) K/uL Lymph # (Auto) (0.50-3.50) K/uL [place] # (Auto) (0.00-1.00) K/uL Eos # (Auto) (0.00-0.50) K/uL Baso # (Auto) (0.00-0.20) K/uL PT (9.8-11.7) SEC INR APTT (22.1-29.8) SEC D-Dimer, Quantitative (0-400) ng/mL Sodium 138 (136-145) mmol/L Potassium 3.8 (3.5-5.1) mmol/L Chloride 104 (98-107) mmol/L Carbon Dioxide 26.8 (21.0-32.0) mmol/L BUN 11 (7-18) mg/dL Creatinine 0.84 (0.51-1.17) mg/dL Est Cr Clr Drug Dosing TNP Estimated GFR (MDRD) > 60 mL/min Glucose 85 (74-106) mg/dL Lactic Acid 0.9 (0.4-2.0) mmol/L Uric Acid 2.9 (2.6-7.2) mg/dL Calcium 9.3 (8.5-10.1) mg/dL Magnesium 2.2 (1.8-2.4) mg/dL Total Bilirubin 0.4 (0.2-1.0) mg/dL AST 15 (15-37) U/L ALT 21 (12-78) U/L Alkaline Phosphatase 68 (46-116) IU/L Creatine Kinase 53 (26-308) U/L Creatine Kinase Index 2.3 (0.0-2.5) % CK-MB (CK-2) 1.20 (0.00-3.60) ng/mL Troponin I 0.000 (0.000-0.056) ng/mL NT-Pro-B Natriuret Pep 101 (0-125) pg/mL Total Protein 7.8 (6.4-8.2) g/dL Albumin 3.8 (3.4-5.0) g/dL TSH, Ultra Sensitive 3.414 (0.358-3.740) mIU/mL Meds: Medications Generic Name Dose Route Start Last Admin Trade Name Freq PRN Reason Stop Dose Admin Sodium Chloride 10 ml 03/04/18 15:33 Saline Flush FLUSH ASDIRECTED PRN Keep Vein Open Discontinued Medications Generic Name Dose Route Start Last Admin Trade Name Freq PRN Reason Stop Dose Admin Aspirin 324 mg 03/04/18 15:33 03/04/18 15:46 Aspirin CHEW 03/04/18 15:34 324 mg ONETIME ONE Administration Famotidine 40 mg 03/04/18 15:33 03/04/18 15:46 Pepcid IVPUSH 03/04/18 15:34 40 mg ONETIME ONE Administration Ticagrelor 180 mg 03/04/18 15:33 03/04/18 15:45 Brilinta PO 03/04/18 15:34 180 mg ONETIME ONE Administration - Radiology Interpretation Free Text/Narrative:: 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 Possible borderline mild centralized CHF versus pulmonary hypertension with no pulmonary infiltrates , pneumothorax, etc. Departure - Departure Time of Disposition: 18:40 Disposition: Refer to Observation Condition: Good Clinical Impression: Chest pain, Peptic reflux disease, Osteoarthritis, Hypothyroidism (acquired), Chronic headaches, Chronic constipation, Mixed anxiety depressive disorder, Chronic vertigo - Problem List & Annotations (1) Chest pain SNOMED Code(s): 41984135 Code(s): R07.9 - CHEST PAIN, UNSPECIFIED Status: Acute Priority: High Current Visit: Yes Onset Date: 03/04/18 Annotation/Comment:: Chest pain protocol initiated upon patient's arrival to the emergency room. Note some new anterior wall cardiac ischemic changes and chest pain resolved/improved at time of admission. Initiate standard rule out NC orders with urology consultation depending on her clinical course. Patient would benefit from a cartilage stress test on an outpatient basis. Borderline previous coronary artery disease, however negative previous cardiac evaluations as above. Initiate low-dose subcutaneous Lovenox as DVT, etc. prophylaxis. Qualifiers: Chest pain type: chest pain due to myocardial ischemia Ischemic chest pain type: unstable angina pectoris Qualified Code(s): I20.0 - Unstable angina (2) Chronic headaches SNOMED Code(s): 200566393 Code(s): R51 - HEADACHE Status: Chronic Priority: Medium Current Visit : Yes Annotation/Comment:: History of chronic headaches including migraine. Relatively stable at this time. Patient was cautioned to have a repeat MRI of her head KAYLAN, if the character of her headaches change, secondary to previous right frontal lobe venous angioma by MRI as above. Qualifiers: Headache type: unspecified Intractability: not intractable Qualified Code (s): R51 - Headache (3) Hypothyroidism (acquired) SNOMED Code(s): 148217905 Code(s): E03.9 - HYPOTHYROIDISM, UNSPECIFIED Status: Chronic Priority: Medium Current Visit: Yes Annotation/Comment:: TSH normal today (4) Osteoarthritis SNOMED Code(s): 339812619 Code(s): M19.90 - UNSPECIFIED OSTEOARTHRITIS, UNSPECIFIED SITE Status: Chronic Priority: Medium Current Visit: Yes Annotation/Comment:: Stable by patient history Qualifiers: Osteoarthritis location: multiple joints Osteoarthritis type: primary Qualified Code(s): M15.0 - Primary generalized (osteo)arthritis (5) Peptic reflux disease SNOMED Code(s): 680169702 Code(s): K21.9 - GASTRO-ESOPHAGEAL REFLUX DISEASE WITHOUT ESOPHAGITIS Status: Chronic Priority: Medium Current Visit: Yes Annotation/Comment:: Stable by patient history with high-dose IV Pepcid given as GI prophylaxis (6) Chronic constipation SNOMED Code(s): 833351717 Code(s): K59.09 - OTHER CONSTIPATION Status: Chronic Priority: Medium Current Visit: Yes Annotation/Comment:: Stable by patient history (7) Chronic vertigo SNOMED Code(s): 94110401727696 Code(s): R42 - DIZZINESS AND GIDDINESS Status: Chronic Priority: Medium Current Visit: Yes Annotation/Comment:: Stable by patient history (8) Mixed anxiety depressive disorder SNOMED Code(s): 487345748 Code(s): F41.8 - OTHER SPECIFIED ANXIETY DISORDERS Status: Chronic Priority: Medium Current Visit: Yes Annotation/Comment:: Stable by patient history - Problem List Review Problem List Initiated/Reviewed/Updated: Yes - My Orders Last 24 Hours: My Active Orders 03/04/18 15:33 Cardiac Monitoring [RC] . DIRECTED EKG Documentation Completion [RC] ASDIRECTED Oxygen Therapy, ED [RC] CONTINUOUS Peripheral IV Care [RC] . DIRECTED Pulse Oximetry [RC] CONTINUOUS Up With Assistance [RC] PFP Vital Signs [RC] PFP Chest 1V Frontal [CR] Stat Sodium Chloride 0.9% [Saline Flush] 10 ml FLUSH ASDIRECTED PRN Obtain Past Medical Record [OM.PC] Urgent Peripheral IV Insertion Adult [OM.PC] Stat Resuscitation Status Stat 03/04/18 Breakfast Nothing per Oral Now Diet [DIET] - Assessment/Plan Admission H&P: Please use this note as an admission H&P Last 24 Hours: My Active Orders 03/04/18 15:33 Cardiac Monitoring [RC] . DIRECTED EKG Documentation Completion [RC] ASDIRECTED Oxygen Therapy, ED [RC] CONTINUOUS Peripheral IV Care [RC] . DIRECTED Pulse Oximetry [RC] CONTINUOUS Up With Assistance [RC] PFP Vital Signs [RC] PFP Chest 1V Frontal [CR] Stat Sodium Chloride 0.9% [Saline Flush] 10 ml FLUSH ASDIRECTED PRN Obtain Past Medical Record [OM.PC] Urgent Peripheral IV Insertion Adult [OM.PC] Stat Resuscitation Status Stat 03/04/18 Breakfast Nothing per Oral Now Diet [DIET] Assessment:: As above Plan: As above. Extensive precautions were given to the patient, her sister, and her who are in agreement with the treatment plan. The patient's condition is stable enough for observation status and general supervision.
[2018-03-04 16:10] LABS: CHLORIDE,CL 104 mmol/L (98-107); SODIUM,NA 138 mmol/L (136-145)
[2018-03-04] MEDS ORDERED: Enoxaparin 40 MG/0.4 ML Syringe SUBCUT SCH (19:00)
[2018-03-04] MEDS ORDERED: Promethazine 25 MG Tab PO PRN (19:13)
[2018-03-04] MEDS ORDERED: Non-Formulary Medication 1 Each (Linaclotide [Linzess] 145 MCG) PO PRN (19:13)
[2018-03-04] MEDS ORDERED: SENNOSIDES 50 MG PO PRN (19:13)
[2018-03-04] MEDS ORDERED: Temazepam 15 MG Cap PO PRN (19:14)
[2018-03-04] MEDS ORDERED: Acetaminophen 325 MG Tab PO PRN (19:14)
[2018-03-05] MEDS ORDERED: Levothyroxine 50 MCG Tab PO SCH (07:30)
--- NOTE | 2018-03-05 10:47 | PCM.DCSUM1 ---
Discharge Summary - Hospital Course HPI Initial Comments: See emergency room note/admission H&P Brief History: See emergency room note/admission. - Discharge Data Discharge Date: 03/05/18 Discharge Disposition: Home, Self-Care 01 Condition: Good - Discharge Diagnosis/Problem(s) (1) Chest pain SNOMED Code(s): 27454308 ICD Code: R07.9 - CHEST PAIN, UNSPECIFIED Status: Acute Priority: High Current Visit: Yes Onset Date: 03/04/18 Problem Details: Negative serial cardiac enzymes with some improvement of possible anterior wall cardiac ischemia by today's EKG. Cardiolite stress test to be conducted in this facility [facility] as per discharge instructions. Activity restrictions discussed. No further change in medical therapy for now. Further cardiology consultation depending on her cardiac workup, clinical course, etc. Chest pain protocol initiated upon patient's arrival to the emergency room. Note some new anterior wall cardiac ischemic changes and chest pain resolved/improved at time of admission. No recurrence of her chest pain or other anginal-type symptoms during this hospitalization. Borderline previous coronary artery disease, however negative previous cardiac evaluations as per emergency room note. Initiated low-dose subcutaneous Lovenox as DVT, etc. prophylaxis on admission. Qualifiers: Chest pain type: chest pain due to myocardial ischemia Ischemic chest pain type: unstable angina pectoris Qualified Code(s): I20.0 - Unstable angina (2) Chronic headaches SNOMED Code(s): 529740540 ICD Code: R51 - HEADACHE Status: Chronic Priority: Medium Current Visit : Yes Problem Details: History of chronic headaches including migraine with mild headache this morning improved with Tylenol therapy. Otherwise relatively stable at this time. Patient was cautioned to have a repeat MRI of her head [facility] , if the character of her headaches change, secondary to previous right frontal lobe venous angioma by MRI as per emergency room note. Qualifiers: Headache type: unspecified Intractability: not intractable Qualified Code (s): R51 - Headache (3) Hypothyroidism (acquired) SNOMED Code(s): 938027363 ICD Code: E03.9 - HYPOTHYROIDISM, UNSPECIFIED Status: Chronic Priority: Medium Current Visit: Yes Problem Details: TSH normal on admission with no thyroid type symptoms. (4) Osteoarthritis SNOMED Code(s): 629164842 ICD Code: M19.90 - UNSPECIFIED OSTEOARTHRITIS, UNSPECIFIED SITE Status: Chronic Priority: Medium Current Visit: Yes Problem Details: Stable by patient history Qualifiers: Osteoarthritis location: multiple joints Osteoarthritis type: primary Qualified Code(s): M15.0 - Primary generalized (osteo)arthritis (5) Peptic reflux disease SNOMED Code(s): 990307004 ICD Code: K21.9 - GASTRO-ESOPHAGEAL REFLUX DISEASE WITHOUT ESOPHAGITIS Status: Chronic Priority: Medium Current Visit: Yes Problem Details: Stable by patient history with high-dose IV Pepcid given as GI prophylaxis in the emergency room. (6) Chronic constipation SNOMED Code(s): 100153581 ICD Code: K59.09 - OTHER CONSTIPATION Status: Chronic Priority: Medium Current Visit: Yes Problem Details: Stable by patient history (7) Chronic vertigo SNOMED Code(s): 13355509711466 ICD Code: R42 - DIZZINESS AND GIDDINESS Status: Chronic Priority: Medium Current Visit: Yes Problem Details: Stable by patient history (8) Mixed anxiety depressive disorder SNOMED Code(s): 494776256 ICD Code: F41.8 - OTHER SPECIFIED ANXIETY DISORDERS Status: Chronic Priority: Medium Current Visit: Yes Problem Details: Stable by patient history (9) Hyperlipidemia SNOMED Code(s): 05794899 ICD Code: E78.5 - HYPERLIPIDEMIA, UNSPECIFIED Status: Chronic Priority: High Current Visit: Yes Problem Details: Long history of known hyperlipidemia with patient apparently not tolerating cholesterol medications in the past secondary to some myalgias. Strict compliance with diet encouraged with information provided. She wishes to discuss this further with her regular provider, including adding additional coenzyme Q 10, using different medications from the past, and/or possibly taking her cholesterol medications on a Mondays, Wednesdays, and Fridays basis only. Qualifiers: Hyperlipidemia type: mixed hyperlipidemia Qualified Code(s): E78.2 - Mixed hyperlipidemia (10) Hypoalbuminemia SNOMED Code(s): 402588715 ICD Code: E88.09 - OTH DISORDERS OF PLASMA-PROTEIN METABOLISM, NEC Status: Acute Priority: Medium Current Visit: Yes Onset Date: 03/05/18 Problem Details: High-protein diet for now. Close follow-up by regular provider. (11) COPD (chronic obstructive pulmonary disease) SNOMED Code(s): 46458219 ICD Code: J44.9 - CHRONIC OBSTRUCTIVE PULMONARY DISEASE, UNSPECIFIED Status : Acute Priority: Medium Current Visit: Yes Onset Date: 03/04/18 Problem Details: Evidence of COPD by chest x-ray. Recent fever or bronchitic type symptoms. Consider PFTs as per discharge instructions. Qualifiers: COPD type: emphysema Emphysema type: panlobular Qualified Code(s): J43.1 - Panlobular emphysema - Patient Summary/Data Operative Procedure(s) Performed: None Complications: None Consults: None Labs Pending at D/C: None Recommended Follow-up Testing/Procedures: As per discharge instructions Planned Operative Procedure(s) after DC: None Hospital Course: The patient was admitted to observation on telemetry with negative workup for acute KS as above. Otherwise aggressive treatment in the emergency room and during this hospitalizations as above with no further complications. - Patient Instructions Diet: Heart Healthy Diet (High protein, diverticulosis) Activity: No Strenuous Activities (50% maximum exercise restriction until your cardiac status has been determined and you have been released by your regular providers) Driving: May Drive Today Showering/Bathing: May Shower Notify Provider of: Fever, Increased Pain, Nausea and/or Vomiting Other/Special Instructions: 1. Follow-up in this facility tomorrow for Cardiolite stress test with instructions to be provided prior to discharge. 2. Otherwise follow-up with your regular provider in the next 710 days for reevaluation and discussion of above Cardiolite stress test results. 3. Discuss with your regular provider [facility] concerning your poor lipid panel today and possible reinitiation of cholesterol medications, coenzyme Q10, etc. as discussed. 4. Immediately after this visit verify that your cellular telephone 's voicemail has been activated and is empty. Also verify that your home telephone's answering machine is operating properly and has space to receive messages. Note that it is sometimes necessary for us to be able to contact you at a later date to discuss your medical care. 5. Consider lung function tests/ PFTs and discuss this further with your regular provider secondary to evidence of COPD by yesterday's chest x-ray. 6. Tylenol 650 mg by mouth every 4 hours and/or OTC ibuprofen 2-3 tabs by mouth every 6 hours with food as directed./ needed. - Discharge Plan Home Medications: Home Meds Meclizine [Antivert] 25 mg PO Q6H PRN 11/24/13 [History] Levothyroxine 50 mcg PO ACBREAKFAST 12/28/16 [History] Linaclotide [Linzess] 145 mcg PO DAILY PRN 12/28/16 [History] Promethazine [Phenergan] 25 mg PO Q8H PRN #6 tablet 12/28/16 [Rx] Sennosides [Ex-Lax Maximum Strength] 50 mg PO DAILY PRN 03/04/18 [History] Acetaminophen [Tylenol] 650 mg PO Q4H PRN tablet 03/05/18 [Rx] Patient Handouts: Fat and Cholesterol Restricted Diet, [id number], Nonspecific Chest Pain, [id number] Forms: ED Department Discharge Referrals: Radha Armstrong PA [Primary Care Provider] - - Discharge Summary/Plan Comment DC Time >30 min.: Yes (Coordination of care ) Discharge Summary/Plan Comment: As above. Extensive precautions were given to the patient, who is in agreement with the treatment plan. See Patient Instructions for further treatment and plan. - General Info Date of Service: 03/05/18 Admission Dx/Problem (Free Text: Chest pain Functional Status: Reports: Pain Controlled, Tolerating Diet, Ambulating, Urinating, New Symptoms. Denies: Incentive Spirometry Numeric/FACES Score: 2 (Headache) - Review of Systems General: Reports: No Symptoms. Denies: Fever, Weakness, Fatigue, Malaise, Night Sweats, Appetite (Appetite good) HEENT: Reports: Glasses, Headaches (2/10 headache at time of medical rounds improved with previous Tylenol). Denies: Contact Lenses, Dysphasia, Ear Pain, Eye Pain, Post Nasal Drip, Sinus Congestion, Sore Throat Pulmonary: Reports: No Symptoms, Shortness of Breath, Pleuritic Chest Pain. Denies: Cough, Hemoptysis, Wheezing Cardiovascular: Reports: No Symptoms. Denies: Chest Pain, Palpitations, Dyspnea on Exertion, Orthopnea, PND, Edema, Lightheadedness Gastrointestinal: Reports: Constipation (Stable with no bowel movement during this hospitalization). Denies: Abdominal Pain, Decreased Appetite, Diarrhea, Difficulty Swallowing, Flatus, Hematochezia, Melena, Nausea, Vomiting Genitourinary: Reports: No Symptoms. Denies: Dysuria, Frequency, Burning, Pain , Urgency, Incontinence, Hematuria, Retention, Flank Pain Musculoskeletal: Reports: No Symptoms. Denies: Neck Pain, Shoulder Pain, Arm Pain, Hand Pain, Back Pain, Leg Pain, Foot Pain, Joint Pain, Joint Swelling Skin: Reports: No Symptoms. Denies: Diaphoresis, Bruising Neurological: Reports: Headache. Denies: Confusion, Dizziness, Numbness, Paresthesia, Pre-Existing Deficit, Seizure, Syncope, Tingling, Tremors, Trouble Speaking, Difficulty Walking, Weakness, Change in Speech Psychiatric: Reports: No Symptoms. Denies: Confusion, Depression, Anxiety, Agitation, Cravings, Hallucinations - Patient Data Vitals - Most Recent: Last Vital Signs Temp 36.6 C 03/05/18 04:00 Pulse 63 03/05/18 04:00 Resp 20 03/05/18 04:00 BP 132/74 03/05/18 04:00 Pulse Ox 97 03/05/18 04:00 Vital Signs - 24 hr 03/04/18 03/04/18 03/04/18 15:25 15:30 15:45 Temperature [ 36.7 C Oral] Temperature [ Temporal] Pulse, 76 71 72 Peripheral [ Pulse Oximetry] Respiratory 18 18 20 Rate Blood Pressure 155/78 H 138/67 124/66 [Left Arm] O2 Sat by Pulse 98 99 100 Oximetry 03/04/18 03/04/18 03/04/18 16:15 16:30 16:45 Temperature [ Oral] Temperature [ Temporal] Pulse, 67 70 65 Peripheral [ Pulse Oximetry] Respiratory 16 17 20 Rate Blood Pressure 140/64 144/71 H 136/69 [Left Arm] O2 Sat by Pulse 100 100 100 Oximetry 03/04/18 03/04/18 03/04/18 17:00 17:30 18:00 Temperature [ Oral] Temperature [ Temporal] Pulse, 64 66 68 Peripheral [ Pulse Oximetry] Respiratory 17 19 19 Rate Blood Pressure 137/62 137/65 140/66 [Left Arm] O2 Sat by Pulse 100 100 100 Oximetry 03/04/18 03/04/18 03/04/18 18:40 19:14 21:14 Temperature [ 36.7 C 36.6 C Oral] Temperature [ Temporal] Pulse, 69 66 64 Peripheral [ Pulse Oximetry] Respiratory 17 Rate Blood Pressure 141/68 H 141/73 H 140/76 [Left Arm] O2 Sat by Pulse 100 96 96 Oximetry 03/04/18 03/05/18 23:30 04:00 Temperature [ 36.6 C Oral] Temperature [ 36.8 C Temporal] Pulse, 76 63 Peripheral [ Pulse Oximetry] Respiratory 16 20 Rate Blood Pressure 133/82 132/74 [Left Arm] O2 Sat by Pulse 95 97 Oximetry Weight - Most Recent: 71.214 kg I&O - Last 24 hours: Intake & Output 03/04/18 03/05/18 03/05/18 22:59 06:59 14:59 Intake Total 50 Output Total 450 Balance -400 Imaging Impressions - Last 24 hrs: classroom monitor shows normal sinus rhythm in the 60s to 70s with no ectopy or arrhythmia Chest x-ray, portable, on 03/04/18 shows moderate COPD changes with mild prominence of the proximal aortic arch and mild aortic valve calcification. Possible borderline mild centralized CHF versus pulmonary hypertension with no pulmonary infiltrates, pneumothorax, etc. Lab Results - Last 24 hrs: Laboratory Results - last 24 hr 03/04/18 03/04/18 03/04/18 Range/Units 15:35 15:35 15:35 WBC 6.4 (4.0-10.2) K/uL RBC 4.28 (3.77-5.09) M/uL Hgb 13.2 (11.7-15.5) g/dL Hct 39.4 (34.0-46.0) % MCV 92.1 (84.0-98.0) fL MCH 30.8 (28.2-33.3) pg MCHC 33.5 (31.7-36.0) g/dL RDW 13.5 (11.2-14.1) % Plt Count 315 (150-350) K/uL Neut % (Auto) 50.5 (45.0-80.0) % Lymph % (Auto) 39.1 (10.0-50.0) % Mchenry % (Auto) 8.9 (2.0-14.0) % Eos % (Auto) 0.9 (0.0-5.0) % Baso % (Auto) 0.6 (0.0-2.0) % Neut # (Auto) 3.22 (1.40-7.00) K/uL Lymph # (Auto) 2.50 (0.50-3.50) K/uL Mchenry # (Auto) 0.57 (0.00-1.00) K/uL Eos # (Auto) 0.06 (0.00-0.50) K/uL Baso # (Auto) 0.04 (0.00-0.20) K/uL PT 10.4 (9.8-11.7) SEC INR 1.0 APTT 26.5 (22.1-29.8) SEC D-Dimer, Quantitative 272 (0-400) ng/mL Sodium (136-145) mmol/L Potassium (3.5-5.1) mmol/L Chloride (98-107) mmol/L Carbon Dioxide (21.0-32.0) mmol/L BUN (7-18) mg/dL Creatinine (0.51-1.17) mg/dL Est Cr Clr Drug Dosing Estimated GFR (MDRD) mL/min Glucose (74-106) mg/dL Hemoglobin A1c (4.3-5.7) % Lactic Acid (0.4-2.0) mmol/L Uric Acid (2.6-7.2) mg/dL Calcium (8.5-10.1) mg/dL Magnesium (1.8-2.4) mg/dL Total Bilirubin (0.2-1.0) mg/dL AST (15-37) U/L ALT (12-78) U/L Alkaline Phosphatase (46-116) IU/L Creatine Kinase (26-308) U/L Creatine Kinase Index (0.0-2.5) % CK-MB (CK-2) (0.00-3.60) ng/mL Troponin I (0.000-0.056) ng/mL NT-Pro-B Natriuret Pep (0-125) pg/mL Total Protein (6.4-8.2) g/dL Albumin (3.4-5.0) g/dL Triglycerides (30-150) mg/dL Cholesterol (100-200) mg/dL LDL Cholesterol, Calc (0-100) mg/dL HDL Cholesterol (40-60) mg/dL TSH, Ultra Sensitive (0.358-3.740) mIU/mL 03/04/18 03/04/18 03/04/18 Range/Units 15:35 15:35 21:10 WBC (4.0-10.2) K/uL RBC (3.77-5.09) M/uL Hgb (11.7-15.5) g/dL Hct (34.0-46.0) % MCV (84.0-98.0) fL MCH (28.2-33.3) pg MCHC (31.7-36.0) g/dL RDW (11.2-14.1) % Plt Count (150-350) K/uL Neut % (Auto) (45.0-80.0) % Lymph % (Auto) (10.0-50.0) % Mchenry % (Auto) (2.0-14.0) % Eos % (Auto) (0.0-5.0) % Baso % (Auto) (0.0-2.0) % Neut # (Auto) (1.40-7.00) K/uL Lymph # (Auto) (0.50-3.50) K/uL Mchenry # (Auto) (0.00-1.00) K/uL Eos # (Auto) (0.00-0.50) K/uL Baso # (Auto) (0.00-0.20) K/uL PT (9.8-11.7) SEC INR APTT (22.1-29.8) SEC D-Dimer, Quantitative (0-400) ng/mL Sodium 138 (136-145) mmol/L Potassium 3.8 (3.5-5.1) mmol/L Chloride 104 (98-107) mmol/L Carbon Dioxide 26.8 (21.0-32.0) mmol/L BUN 11 (7-18) mg/dL Creatinine 0.84 (0.51-1.17) mg/dL Est Cr Clr Drug Dosing TNP Estimated GFR (MDRD) > 60 mL/min Glucose 85 (74-106) mg/dL Hemoglobin A1c (4.3-5.7) % Lactic Acid 0.9 (0.4-2.0) mmol/L Uric Acid 2.9 (2.6-7.2) mg/dL Calcium 9.3 (8.5-10.1) mg/dL Magnesium 2.2 (1.8-2.4) mg/dL Total Bilirubin 0.4 (0.2-1.0) mg/dL AST 15 (15-37) U/L ALT 21 (12-78) U/L Alkaline Phosphatase 68 (46-116) IU/L Creatine Kinase 53 49 (26-308) U/L Creatine Kinase Index 2.3 2.0 (0.0-2.5) % CK-MB (CK-2) 1.20 1.00 (0.00-3.60) ng/mL Troponin I 0.000 0.000 (0.000-0.056) ng/mL NT-Pro-B Natriuret Pep 101 (0-125) pg/mL Total Protein 7.8 (6.4-8.2) g/dL Albumin 3.8 (3.4-5.0) g/dL Triglycerides (30-150) mg/dL Cholesterol (100-200) mg/dL LDL Cholesterol, Calc (0-100) mg/dL HDL Cholesterol (40-60) mg/dL TSH, Ultra Sensitive 3.414 (0.358-3.740) mIU/mL 03/05/18 03/05/18 03/05/18 Range/Units 06:48 06:48 06:48 WBC 5.2 (4.0-10.2) K/uL RBC 4.11 (3.77-5.09) M/uL Hgb 12.6 (11.7-15.5) g/dL Hct 37.9 (34.0-46.0) % MCV 92.2 (84.0-98.0) fL MCH 30.7 (28.2-33.3) pg MCHC 33.2 (31.7-36.0) g/dL RDW 13.4 (11.2-14.1) % Plt Count 304 (150-350) K/uL Neut % (Auto) 46.4 (45.0-80.0) % Lymph % (Auto) 39.3 (10.0-50.0) % Mchenry % (Auto) 10.7 (2.0-14.0) % Eos % (Auto) 3.2 (0.0-5.0) % Baso % (Auto) 0.4 (0.0-2.0) % Neut # (Auto) 2.43 (1.40-7.00) K/uL Lymph # (Auto) 2.06 (0.50-3.50) K/uL Mchenry # (Auto) 0.56 (0.00-1.00) K/uL Eos # (Auto) 0.17 (0.00-0.50) K/uL Baso # (Auto) 0.02 (0.00-0.20) K/uL PT (9.8-11.7) SEC INR APTT (22.1-29.8) SEC D-Dimer, Quantitative (0-400) ng/mL Sodium 139 (136-145) mmol/L Potassium 3.8 (3.5-5.1) mmol/L Chloride 105 (98-107) mmol/L Carbon Dioxide 25.2 (21.0-32.0) mmol/L BUN 14 (7-18) mg/dL Creatinine 0.99 (0.51-1.17) mg/dL Est Cr Clr Drug Dosing 44.68 Estimated GFR (MDRD) 55 mL/min Glucose 89 (74-106) mg/dL Hemoglobin A1c 5.5 (4.3-5.7) % Lactic Acid (0.4-2.0) mmol/L Uric Acid (2.6-7.2) mg/dL Calcium 8.8 (8.5-10.1) mg/dL Magnesium (1.8-2.4) mg/dL Total Bilirubin 0.5 (0.2-1.0) mg/dL AST 15 (15-37) U/L ALT 20 (12-78) U/L Alkaline Phosphatase 57 (46-116) IU/L Creatine Kinase 43 (26-308) U/L Creatine Kinase Index 2.3 (0.0-2.5) % CK-MB (CK-2) 1.00 (0.00-3.60) ng/mL Troponin I 0.000 (0.000-0.056) ng/mL NT-Pro-B Natriuret Pep (0-125) pg/mL Total Protein 6.9 (6.4-8.2) g/dL Albumin 3.3 L (3.4-5.0) g/dL Triglycerides 133 (30-150) mg/dL Cholesterol 259 H (100-200) mg/dL LDL Cholesterol, Calc 187 H (0-100) mg/dL HDL Cholesterol 45 (40-60) mg/dL TSH, Ultra Sensitive (0.358-3.740) mIU/mL Laboratory Tests 03/04/18 03/04/18 03/04/18 Range/Units 15:35 15:35 15:35 WBC 6.4 (4.0-10.2) K/uL RBC 4.28 (3.77-5.09) M/uL Hgb 13.2 (11.7-15.5) g/dL Hct 39.4 (34.0-46.0) % MCV 92.1 (84.0-98.0) fL MCH 30.8 (28.2-33.3) pg MCHC 33.5 (31.7-36.0) g/dL RDW 13.5 (11.2-14.1) % Plt Count 315 (150-350) K/uL Neut % (Auto) 50.5 (45.0-80.0) % Lymph % (Auto) 39.1 (10.0-50.0) % Mchenry % (Auto) 8.9 (2.0-14.0) % Eos % (Auto) 0.9 (0.0-5.0) % Baso % (Auto) 0.6 (0.0-2.0) % Neut # (Auto) 3.22 (1.40-7.00) K/uL Lymph # (Auto) 2.50 (0.50-3.50) K/uL Mchenry # (Auto) 0.57 (0.00-1.00) K/uL Eos # (Auto) 0.06 (0.00-0.50) K/uL Baso # (Auto) 0.04 (0.00-0.20) K/uL PT 10.4 (9.8-11.7) SEC INR 1.0 APTT 26.5 (22.1-29.8) SEC D-Dimer, Quantitative 272 (0-400) ng/mL Sodium (136-145) mmol/L Potassium (3.5-5.1) mmol/L Chloride (98-107) mmol/L Carbon Dioxide (21.0-32.0) mmol/L BUN (7-18) mg/dL Creatinine (0.51-1.17) mg/dL Est Cr Clr Drug Dosing Estimated GFR (MDRD) mL/min Glucose (74-106) mg/dL Hemoglobin A1c (4.3-5.7) % Lactic Acid (0.4-2.0) mmol/L Uric Acid (2.6-7.2) mg/dL Calcium (8.5-10.1) mg/dL Magnesium (1.8-2.4) mg/dL Total Bilirubin (0.2-1.0) mg/dL AST (15-37) U/L ALT (12-78) U/L Alkaline Phosphatase (46-116) IU/L Creatine Kinase (26-308) U/L Creatine Kinase Index (0.0-2.5) % CK-MB (CK-2) (0.00-3.60) ng/mL Troponin I (0.000-0.056) ng/mL NT-Pro-B Natriuret Pep (0-125) pg/mL Total Protein (6.4-8.2) g/dL Albumin (3.4-5.0) g/dL Triglycerides (30-150) mg/dL Cholesterol (100-200) mg/dL LDL Cholesterol, Calc (0-100) mg/dL HDL Cholesterol (40-60) mg/dL TSH, Ultra Sensitive (0.358-3.740) mIU/mL 03/04/18 03/04/18 03/04/18 Range/Units 15:35 15:35 21:10 WBC (4.0-10.2) K/uL RBC (3.77-5.09) M/uL Hgb (11.7-15.5) g/dL Hct (34.0-46.0) % MCV (84.0-98.0) fL MCH (28.2-33.3) pg MCHC (31.7-36.0) g/dL RDW (11.2-14.1) % Plt Count (150-350) K/uL Neut % (Auto) (45.0-80.0) % Lymph % (Auto) (10.0-50.0) % Mchenry % (Auto) (2.0-14.0) % Eos % (Auto) (0.0-5.0) % Baso % (Auto) (0.0-2.0) % Neut # (Auto) (1.40-7.00) K/uL Lymph # (Auto) (0.50-3.50) K/uL Mchenry # (Auto) (0.00-1.00) K/uL Eos # (Auto) (0.00-0.50) K/uL Baso # (Auto) (0.00-0.20) K/uL PT (9.8-11.7) SEC INR APTT (22.1-29.8) SEC D-Dimer, Quantitative (0-400) ng/mL Sodium 138 (136-145) mmol/L Potassium 3.8 (3.5-5.1) mmol/L Chloride 104 (98-107) mmol/L Carbon Dioxide 26.8 (21.0-32.0) mmol/L BUN 11 (7-18) mg/dL Creatinine 0.84 (0.51-1.17) mg/dL Est Cr Clr Drug Dosing TNP Estimated GFR (MDRD) > 60 mL/min Glucose 85 (74-106) mg/dL Hemoglobin A1c (4.3-5.7) % Lactic Acid 0.9 (0.4-2.0) mmol/L Uric Acid 2.9 (2.6-7.2) mg/dL Calcium 9.3 (8.5-10.1) mg/dL Magnesium 2.2 (1.8-2.4) mg/dL Total Bilirubin 0.4 (0.2-1.0) mg/dL AST 15 (15-37) U/L ALT 21 (12-78) U/L Alkaline Phosphatase 68 (46-116) IU/L Creatine Kinase 53 49 (26-308) U/L Creatine Kinase Index 2.3 2.0 (0.0-2.5) % CK-MB (CK-2) 1.20 1.00 (0.00-3.60) ng/mL Troponin I 0.000 0.000 (0.000-0.056) ng/mL NT-Pro-B Natriuret Pep 101 (0-125) pg/mL Total Protein 7.8 (6.4-8.2) g/dL Albumin 3.8 (3.4-5.0) g/dL Triglycerides (30-150) mg/dL Cholesterol (100-200) mg/dL LDL Cholesterol, Calc (0-100) mg/dL HDL Cholesterol (40-60) mg/dL TSH, Ultra Sensitive 3.414 (0.358-3.740) mIU/mL 03/05/18 03/05/18 03/05/18 Range/Units 06:48 06:48 06:48 WBC 5.2 (4.0-10.2) K/uL RBC 4.11 (3.77-5.09) M/uL Hgb 12.6 (11.7-15.5) g/dL Hct 37.9 (34.0-46.0) % MCV 92.2 (84.0-98.0) fL MCH 30.7 (28.2-33.3) pg MCHC 33.2 (31.7-36.0) g/dL RDW 13.4 (11.2-14.1) % Plt Count 304 (150-350) K/uL Neut % (Auto) 46.4 (45.0-80.0) % Lymph % (Auto) 39.3 (10.0-50.0) % Mchenry % (Auto) 10.7 (2.0-14.0) % Eos % (Auto) 3.2 (0.0-5.0) % Baso % (Auto) 0.4 (0.0-2.0) % Neut # (Auto) 2.43 (1.40-7.00) K/uL Lymph # (Auto) 2.06 (0.50-3.50) K/uL Mchenry # (Auto) 0.56 (0.00-1.00) K/uL Eos # (Auto) 0.17 (0.00-0.50) K/uL Baso # (Auto) 0.02 (0.00-0.20) K/uL PT (9.8-11.7) SEC INR APTT (22.1-29.8) SEC D-Dimer, Quantitative (0-400) ng/mL Sodium 139 (136-145) mmol/L Potassium 3.8 (3.5-5.1) mmol/L Chloride 105 (98-107) mmol/L Carbon Dioxide 25.2 (21.0-32.0) mmol/L BUN 14 (7-18) mg/dL Creatinine 0.99 (0.51-1.17) mg/dL Est Cr Clr Drug Dosing 44.68 Estimated GFR (MDRD) 55 mL/min Glucose 89 (74-106) mg/dL Hemoglobin A1c 5.5 (4.3-5.7) % Lactic Acid (0.4-2.0) mmol/L Uric Acid (2.6-7.2) mg/dL Calcium 8.8 (8.5-10.1) mg/dL Magnesium (1.8-2.4) mg/dL Total Bilirubin 0.5 (0.2-1.0) mg/dL AST 15 (15-37) U/L ALT 20 (12-78) U/L Alkaline Phosphatase 57 (46-116) IU/L Creatine Kinase 43 (26-308) U/L Creatine Kinase Index 2.3 (0.0-2.5) % CK-MB (CK-2) 1.00 (0.00-3.60) ng/mL Troponin I 0.000 (0.000-0.056) ng/mL NT-Pro-B Natriuret Pep (0-125) pg/mL Total Protein 6.9 (6.4-8.2) g/dL Albumin 3.3 L (3.4-5.0) g/dL Triglycerides 133 (30-150) mg/dL Cholesterol 259 H (100-200) mg/dL LDL Cholesterol, Calc 187 H (0-100) mg/dL HDL Cholesterol 45 (40-60) mg/dL TSH, Ultra Sensitive (0.358-3.740) mIU/mL ELDA Results - Last 24 hrs: None Med Orders - Current: Current Medications Acetaminophen (Tylenol) 650 mg PO Q4H PRN PRN Reason: Pain Last Admin: 03/05/18 07:20 Dose: 650 mg Enoxaparin Sodium (Lovenox) 40 mg SUBCUT Q24H THANH Last Admin: 03/04/18 19:49 Dose: 40 mg Levothyroxine Sodium (Synthroid) 50 mcg PO ACBREAKFAST THANH Last Admin: 03/05/18 07:20 Dose: 50 mcg Meclizine HCl (Antivert) 25 mg PO Q6H PRN PRN Reason: Dizziness Non-Formulary Medication (Linaclotide [Linzess]) 145 mcg PO DAILY PRN PRN Reason: Constipation Non-Formulary Medication (Sennosides [Ex-Lax Maximum Strength]) 50 mg PO DAILY PRN PRN Reason: Constipation Promethazine HCl (Phenergan) 25 mg PO Q8H PRN PRN Reason: Nausea Sodium Chloride (Saline Flush) 10 ml FLUSH ASDIRECTED PRN PRN Reason: Keep Vein Open Sodium Chloride (Saline Flush) 10 ml FLUSH Q12HR PRN PRN Reason: Keep Vein Open Temazepam (Restoril) 15 mg PO BEDTIME PRN PRN Reason: Insomnia Discontinued Medications Aspirin (Aspirin) 324 mg CHEW ONETIME ONE Stop: 03/04/18 15:34 Last Admin: 03/04/18 15:46 Dose: 324 mg Famotidine (Pepcid) 40 mg IVPUSH ONETIME ONE Stop: 03/04/18 15:34 Last Admin: 03/04/18 15:46 Dose: 40 mg Ticagrelor (Brilinta) 180 mg PO ONETIME ONE Stop: 03/04/18 15:34 Last Admin: 03/04/18 15:45 Dose: 180 mg - Exam Quality Assessment: Reports: Supplemental Oxygen, DVT Prophylaxis (Lovenox). Denies: Central Line/PICC, Urine Catheter, Skin Breakdown, Restraints General: Reports: Alert, Oriented, Cooperative, No Acute Distress HEENT: Reports: Pupils Equal, Pupils Reactive, EOMI, Mucous Membr. Moist/[place] Neck: Reports: Supple, Trachea Midline, No JVD, No Thyromegaly, Carotid Bruit ( Mild bilateral carotid bruits). Denies: Lymphadenopathy Lungs: Reports: Clear to Auscultation, Normal Respiratory Effort. Denies: Rub Cardiovascular: Reports: Regular Rate, Regular Rhythm, No Murmurs. Denies: Gallops, Rubs GI/Abdominal Exam: Normal Bowel Sounds, Soft, Non-Tender, No Organomegaly, No Distention, No Abnormal Bruit, No Mass. No: Guarding (Female) Exam: Deferred Rectal (Female) Exam: Deferred Back Exam: Reports: Normal Inspection, Full Range of Motion. Denies: CVA Tenderness (L), CVA Tenderness (R), Muscle Spasm Extremities: Normal Inspection, Normal Range of Motion, Non-Tender, No Pedal Edema, Normal Capillary Refill. No: Rusty's Sign Skin: Reports: Warm, Dry, Intact, Ecchymosis (Mild at Lovenox site) Neurological: Reports: No New Focal Deficit, Normal Gait, Normal Speech Psy/Mental Status: Reports: Alert, Normal Affect, Normal Mood. Denies: Agitated , Withdrawal Symptoms EKG INTERPRETATION EKG Date: 03/05/18 Time: 08:22 Rhythm: NSR Rate (Beats/Min): 67 [place]: Normal (Neutral cardiac axis) P-Wave: Present (Diffuse biphasic P waves with pulmonary hypertension by EKG) QRS: Normal (QRS interval of 0.08 seconds) ST-T: Other (T-wave inversion in lead V1 with some improvement and T-wave inversion in lead V2) QT: Normal SC/PQ Interval: 0.19 seconds Comparison: Change From Previous EKG (Improved T-wave inversion as above since ) EKG Interpretation Comments: 1. Borderline anterior wall cardiac ischemia?improved 2. Pulmonary hypertension by EKG 3. Probable left atrial enlargement
[2018-03-05 12:23] VITALS: BP 134/77
== END 2018-03-05 12:20 | disposition home or self-care (01) ==
LOC: LL.ED 15:25 → LL.MS 18:30
PROVIDERS: ADMIT Family Medicine; ATTEND Family Medicine
DX: I20.0 Unstable angina (principal); R51 Headache; E03.9 Hypothyroidism, unspecified; M15.0 Primary generalized (osteo)arthritis; K21.9 Gastro-esophageal reflux disease without esophagitis; K59.09 Other constipation; R42 Dizziness and giddiness; F41.8 Other specified anxiety disorders; E78.2 Mixed hyperlipidemia; E88.09 Other disorders of plasma-protein metabolism, not elsewhere classified; J43.1 Panlobular emphysema; J30.9 Allergic rhinitis, unspecified; Z88.1 Allergy status to other antibiotic agents; Z88.8 Allergy status to other drugs, medicaments and biological substances; Z88.0 Allergy status to penicillin; Z88.2 Allergy status to sulfonamides
CPT/HCPCS: 36415; 71045; 80053; 80061; 82550; 82553; 83036; 83605; 83735; 83880; 84443; 84484; 84550; 85025; 85379; 85610; 85730; 93005; 96372; 96374; 99285; A9270-GY; G0378; J1650; S0028

== ENCOUNTER 2018-06-12 10:59 | Day surgery (SDC) | payer MEDICARE, BC ==
[~2018-06-12 10:59] MED LIST: Lactated Ringers 1,000 ML IV SCH; Midazolam 1 MG/ML 2 ML SDV ONE; Propofol 200 MG/20 ML SDV ONE; Sodium Chloride 0.9% 10 ML Syringe FLUSH PRN; fentaNYL 100 MCG/2 ML SDV ONE
[2018-06-12] MEDS ORDERED: fentaNYL 100 MCG/2 ML SDV ONE (12:08)
[2018-06-12] MEDS ORDERED: Midazolam 1 MG/ML 2 ML SDV ONE (12:08)
[2018-06-12] MEDS ORDERED: Propofol 200 MG/20 ML SDV ONE ×2 (12:08→12:58)
--- NOTE | 2018-06-12 12:18 | PCM.PN ---
- General Info Date of Service: 06/12/18 - Review of Systems General: Reports: Fever Systems Review Comment:: 72-year-old female here for EGD and colonoscopy. She has been having some burning epigastric and chest pain. She also has a known history of gastroesophageal reflux disease. She continues to have difficulty with bowel movements and has noticed some change recently. It is been several years since her last colonoscopy. I have discussed the proposed upper and lower endoscopies with the patient. She understands indications and risks and agrees to proceed. - Patient Data Vitals - Most Recent: Last Vital Signs Temp 97.6 F 06/12/18 11:12 Pulse 83 06/12/18 11:12 Resp 20 06/12/18 11:12 BP 145/87 H 06/12/18 11:12 Pulse Ox 98 06/12/18 11:12 Weight - Most Recent: 68.039 kg Med Orders - Current: Current Medications Lactated Ringer's (Ringers, Lactated) 1,000 mls @ 125 mls/hr IV ASDIRECTED THANH Last Admin: 06/12/18 11:30 Dose: 125 mls/hr Sodium Chloride (Saline Flush) 10 ml FLUSH ASDIRECTED PRN PRN Reason: Keep Vein Open Discontinued Medications Fentanyl (Sublimaze) Confirm Administered Dose 100 mcg .ROUTE .STK-MED ONE Stop: 06/12/18 09:48 Midazolam HCl (Versed 1 Mg/Ml) Confirm Administered Dose 2 mg .ROUTE .STK-MED ONE Stop: 06/12/18 09:48 Propofol (Diprivan 20 Ml) Confirm Administered Dose 200 mg .ROUTE .STK-MED ONE Stop: 06/12/18 09:48 - Problem List Review Problem List Initiated/Reviewed/Updated: Yes - Assessment Assessment:: GERD change in bowel habits - Plan Plan:: EGD and colonoscopy
--- NOTE | 2018-06-12 13:21 | PCM.OPNOTE ---
- General Post-Op/Procedure Note Date of Surgery/Procedure: 06/12/18 Operative Procedure(s): EGD with Bx and Colonoscopy Findings: Small Hiatal Hernia Moderate Sigmoid Diverticulosis Pre Op Diagnosis: GERD. Change in Bowel Habits Post-Op Diagnosis: Hiatal hernia. Diverticulosis Anesthesia Technique: MAC Primary Surgeon: Willam Brown Pathology: Biospies of Gastric Antrum and esophagus EBL in mLs: 3 Complications: None Condition: Good
[2018-06-12] MEDS ORDERED: Promethazine 25 MG/ML SDV IM ONE (15:14)
[2018-06-12 18:06] VITALS: BP 138/61
--- NOTE | 2018-06-13 10:37 | OR ---
Date of Procedure: 06/12/2018 Referring Provider: Radha Armstrong PA-C PREOPERATIVE DIAGNOSES: 1. Gastroesophageal reflux disease. 2. Change in bowel habits. POSTOPERATIVE DIAGNOSES: 1. Hiatal hernia. 2. Sigmoid diverticulosis. OPERATION PERFORMED: Esophagogastroduodenoscopy with biopsy and colonoscopy. INDICATIONS FOR SURGERY: This is a 72-year-old female, who has been having symptoms of some epigastric and chest burning discomfort. She has been diagnosed with a hiatal hernia in the past and comes for evaluation of these worsening symptoms. It has also been at least 5 years since her last colonoscopy. FINDINGS: On upper endoscopy, the patient's esophagus appears normal without visible signs of inflammation, there is a 2 cm hiatal hernia located at the GE junction 35 cm from the incisors. There was no exudate or extensive inflammation seen in this area. The remainder of the patient's stomach appeared normal as did her duodenum into the third portion. Her colon demonstrated moderate diverticulosis of the sigmoid region. It was otherwise normal except for tortuosity. DESCRIPTION OF PROCEDURE: The patient was taken to the operating room. She was given intravenous sedation and her throat was topically anesthetized. The esophagus was intubated with the Olympus gastroscope. This was carefully advanced down through the esophagus and into the stomach and then on into the duodenum, where examination to the third portion was performed. After examining the duodenum, the scope was withdrawn into the stomach where biopsies of the antrum were taken to rule out H. pylori. Retroflexed examination of the fundus was carried out. The GE junction did appear widened consistent with her hiatal hernia. This GE junction area was carefully examined and biopsies were taken of the GE junction. The scope was withdrawn into the midportion of her esophagus and because of her symptoms here, biopsies were also taken. The scope was withdrawn and the attention was turned to colonoscopy. Digital rectal exam was performed showing no rectal masses. The Olympus colonoscope was inserted into the rectum. Retroflexed examination of the rectal canal was performed. The scope was then carefully advanced under direct visualization. The colon was quite tortuous, but eventually with hand pressure and by placing the patient in the supine position, the cecum was able to be viewed including the ileocecal valve and appendiceal orifice. The light was also noted to transilluminate the abdominal wall, the right lower quadrant. After examining the cecum, the scope was slowly withdrawn sequentially re-examining the colonic segments until the entire colon and rectum had been fully examined. The scope was removed and the patient was taken from the operating room in satisfactory condition. ESTIMATED BLOOD LOSS: 3 mL. COMPLICATIONS: None. PROGNOSIS: Good. TIFF Brown MD /[id number]
== END 2018-06-12 19:30 | disposition home or self-care (01) ==
LOC: LL.SDS 10:59
PROVIDERS: ATTEND Surgery
DX: K21.9 Gastro-esophageal reflux disease without esophagitis (principal); K44.9 Diaphragmatic hernia without obstruction or gangrene; R19.4 Change in bowel habit; K57.30 Diverticulosis of large intestine without perforation or abscess without bleeding; E03.9 Hypothyroidism, unspecified; E78.5 Hyperlipidemia, unspecified; Z88.0 Allergy status to penicillin; Z88.2 Allergy status to sulfonamides; Z88.8 Allergy status to other drugs, medicaments and biological substances; Z88.1 Allergy status to other antibiotic agents
CPT/HCPCS: 43239; 45378; J2250; J2550; J2704; J3010; J7120; 00813

== ENCOUNTER 2019-01-01 17:52 | Emergency (ER) | payer MEDICARE, BC ==
[2019-01-01 18:05] VITALS: BP 154/78
[2019-01-01] MEDS ORDERED: Promethazine 25 MG/ML SDV IM ONE (18:29)
[2019-01-01] MEDS ORDERED: Ketorolac 60 MG/2 ML SDV IM ONE (19:27)
--- NOTE | 2019-01-01 19:33 | EDM.PDOC ---
ED HPI GENERAL MEDICAL PROBLEM - General Chief Complaint: General Stated Complaint: N/V, Migraine Time Seen by Provider: 01/01/19 18:00 Source of Information: Reports: Patient History Limitations: Reports: No Limitations - History of Present Illness Onset: Today Duration: Hour(s): Location: Reports: Head Quality: Reports: Pressure, Throbbing Severity: Moderate Improves with: Reports: Other (Phenergan) Worsens with: Reports: Movement Associated Symptoms: Reports: Headaches, Nausea/Vomiting Head Pain Score (Numeric/FACES): 8 - Related Data Allergies Allergy/AdvReac Type Severity Reaction Status Date / Time azithromycin [From Zithromax] Allergy Nausea and Verified 01/01/19 18:03 Vomiting cefprozil [From Cefzil] Allergy Nausea and Verified 01/01/19 18:03 Vomiting ciprofloxacin [From Cipro] Allergy Nausea and Verified 01/01/19 18:03 Vomiting ciprofloxacin HCl Allergy Nausea and Verified 01/01/19 18:03 [From Cipro] Vomiting methylprednisolone Allergy Nausea and Verified 01/01/19 18:03 [From Medrol] Vomiting ondansetron Allergy UNKNOWN Verified 01/01/19 18:03 [From Zofran (as hydrochloride)] Penicillins Allergy Hives Verified 01/01/19 18:03 Sulfa (Sulfonamide Allergy Nausea and Verified 01/01/19 18:03 Antibiotics) Vomiting Home Meds: Home Meds Linaclotide [Linzess] 145 mcg PO DAILY PRN 12/28/16 [History] Promethazine [Phenergan] 25 mg PO Q8H PRN #6 tablet 12/28/16 [Rx] Sennosides [Ex-Lax Maximum Strength] 50 mg PO DAILY PRN 03/04/18 [History] Acetaminophen [Tylenol] 650 mg PO Q4H PRN tablet 03/05/18 [Rx] Omeprazole 20 mg PO DAILY PRN 06/12/18 [History] Levothyroxine [Synthroid] 50 mcg PO ACBREAKFAST 01/01/19 [History] Past Medical History HEENT History: Reports: Allergic Rhinitis, Impaired Vision, Other (See Below) Other HEENT History: Patient wears glasses. Cardiovascular History: Reports: High Cholesterol Other Cardiovascular History: Moderate to severe hyperlipidemia. Near syncopal episode in 2010 Respiratory History: Reports: None, Intubation, Previous Gastrointestinal History: Reports: Chronic Constipation, GERD, Hemorrhoids, Hiatal Hernia Genitourinary History: Reports: UTI, Recurrent Other Genitourinary History: history of urostomy 1984 PIGMENT WEIGHER History: Reports: Other PIGMENT WEIGHER History: Full term without complications during pregnancies or deliveries. Surgical menopause as below. Right ovarian cyst. History of cervical cancer as below with no radiation or chemotherapy required Musculoskeletal History: Reports: Arthritis, Back Pain, Chronic, Osteoarthritis , Osteoporosis, Other (See Below) Other Musculoskeletal History: Scoliosis. Neurological History: Reports: Vertigo Other Neuro History: Right frontal lobe venous angioma by MRI scan on 12/01/13 Psychiatric History: Reports: Anxiety, Depression Endocrine/Metabolic History: Reports: Hypothyroidism Hematologic History: Reports: Anemia, Blood Transfusion(s), Other (See Below) Other Hematologic History: Transfusion of 2 units of packed red blood cells post hysterectomy. Immunologic History: Reports: None Oncologic (Cancer) History: Reports: Cervix Other Oncologic History: Cervical cancer as above with hysterectomy as below required. Dermatologic History: Reports: None - Infectious Disease History Infectious Disease History: Reports: Chicken Pox, Measles, Mumps - Past Surgical History Head Surgeries/Procedures: Reports: None HEENT Surgical History: Reports: Naso-Sinus Surgery Other HEENT Surgeries/Procedures: [place] teeth extraction 4 in the . Sinus surgery in September 2015. Cardiovascular Surgical History: Reports: None Respiratory Surgical History: Reports: None GI Surgical History: Reports: Appendectomy, Other (See Below) Other GI Surgeries/Procedures: rectal fissure repair Female Surgical History: Reports: Hysterectomy, Tubal Ligation Other Female Surgeries/Procedures: Complete hysterectomy with left-sided nephrectomy secondary to cervical cancer at the [facility] in June 1985. Bilateral tubal ligation in 1980. Urostomy in 1984 Endocrine Surgical History: Reports: None Neurological Surgical History: Reports: None Musculoskeletal Surgical History: Reports: None Oncologic Surgical History: Reports: None Dermatological Surgical History: Reports: None - Past Imaging History Past Imaging History: Reports: Carotid US (06/28/16), CAT Scan (CT of the sinuses on 08/20/13. CT of the head on 06/28/16, 02/22/16, and 11/24/13. CTA of the chest on 02/14/16. CT of the abdomen and pelvis on 02/14/16.), MRA (MRA of the brain and neck on 12/01/13), MRI (MRI of the brain on 12/01/13), Stress Testing (Cardiolite stress test on 06/25/13 with ejection fraction of 69% with previous evaluation on 11/23/10.), Ultrasound (Bladder ultrasound on 03/17/13. Left breast ultrasound on 11/08/11.) Social & Family History - Family History HEENT: Reports: Allergic Rhinitis, Cataract, Macular Degeneration, Other (See Below) Other HEENT Family History: Father with nasal polyps and allergic rhinitis. Father with macular degeneration. Mother with cataracts. Cardiac: Reports: Bypass, CAD, Heart Failure, High Cholesterol, Hypertension, Other (See Below) Other Cardiac Family History: Mother with four-vessel CABG at age 80 with fatal CHF at age 89. No history of [place]. Hyperlipidemia in 3 brothers and 1 sister. 2 brothers with hypertension. Respiratory: Reports: None GI: Reports: Inflammatory Bowel Disease, Pancreatitis, Other (See Below) Other GI Family History: Daughter with ulcerative colitis. Pancreatic cancer with pancreatitis in 2 maternal great aunts as below. : Reports: None OBGYN: Reports: None Musculoskeletal: Reports: Arthritis, Osteoarthritis Neurological: Reports: CVA, Other (See Below) Other Neurological Family History: Paternal grandfather with CVA in his 70s fatal secondary to subsequent complications a few years later. Psychiatric: Reports: None Endocrine/Metabolic: Reports: Diabetes, type II, Other (See Below) Other Endocrine/Metabolic Family History: Brother with diabetes mellitus Hematologic: Reports: None Immunologic: Reports: None Dermatologic: Reports: None Oncologic: Reports: Metastatic, Pancreatic, Skin, Other (See Below) Other Oncologic Family History: Maternal grandfather from unknown type of cancer possibly hepatic with secondary pulmonary metastases fatal in his 60s. He did use tobacco. 2 paternal uncles with unknown type of fatal cancer in their 60s although one with apparent bone cancer and another with unknown primary but metastatic in nature. Maternal great aunts 2 with fatal pancreatic cancer in their 90s. Brother with unknown type of skin cancer. - Tobacco Use Smoking Status *Q: Never Smoker Second Hand Smoke Exposure: No - Caffeine Use Caffeine Use: Reports: Coffee - Recreational Drug Use Recreational Drug Use: No - Living Situation & Occupation Living situation: Reports: (1972, 4 children) Occupation: Retired (Retired from [employer] at age 59) ED ROS GENERAL - Review of Systems Review Of Systems: See Below Constitutional: Reports: No Symptoms HEENT: Reports: No Symptoms Respiratory: Reports: No Symptoms Cardiovascular: Reports: No Symptoms Endocrine: Reports: No Symptoms GI/Abdominal: Reports: No Symptoms : Reports: No Symptoms Musculoskeletal: Reports: No Symptoms Skin: Reports: No Symptoms Neurological: Reports: Headache Psychiatric: Reports: No Symptoms Hematologic/Lymphatic: Reports: No Symptoms Immunologic: Reports: No Symptoms ED EXAM, GENERAL - Physical Exam Exam: See Below Exam Limited By: No Limitations General Appearance: Alert, WD/WN, No Apparent Distress Ears: Normal External Exam, Normal Canal, Hearing Grossly Normal, Normal TMs Nose: Normal Inspection, Normal Mucosa, No Blood Throat/Mouth: Normal Inspection, Normal Lips, Normal Teeth, Normal Gums, Normal Oropharynx, Normal Voice, No Airway Compromise Head: Atraumatic, Normocephalic Neck: Normal Inspection, Supple, Non-Tender, Full Range of Motion Respiratory/Chest: No Respiratory Distress, Lungs Clear, Normal Breath Sounds, No Accessory Muscle Use, Chest Non-Tender Cardiovascular: Normal Peripheral Pulses, Regular Rate, Rhythm, No Edema, No Gallop, No JVD, No Murmur, No Rub GI/Abdominal: Normal Bowel Sounds, Soft, Non-Tender, No Organomegaly, No Distention, No Abnormal Bruit, No Mass Back Exam: Normal Inspection, Full Range of Motion, NT Extremities: Normal Inspection, Normal Range of Motion, Non-Tender, Normal Capillary Refill, No Pedal Edema Psychiatric: Normal Affect, Normal Mood Skin Exam: Warm, Dry, Intact, Normal Color, No Rash Lymphatic: No Adenopathy Course - Vital Signs Last Recorded V/S: Last Vital Signs Temp 97.6 F 01/01/19 18:05 Pulse 75 01/01/19 18:05 Resp 16 01/01/19 18:05 BP 154/78 H 01/01/19 18:05 Pulse Ox 99 01/01/19 18:05 - Orders/Labs/Meds Orders: Active Orders 24 hr Category Date Time Status Ketorolac [Toradol] Med 01/01/19 19:27 Once 60 mg IM ONETIME ONE Meds: Medications Discontinued Medications Generic Name Dose Route Start Last Admin Trade Name Freq PRN Reason Stop Dose Admin Promethazine HCl 50 mg 01/01/19 18:29 01/01/19 18:37 Phenergan IM 01/01/19 18:30 50 mg ONETIME ONE Administration Departure - Departure Time of Disposition: 19:32 Disposition: Home, Self-Care 01 Clinical Impression: Migraine - Discharge Information *PRESCRIPTION DRUG MONITORING PROGRAM REVIEWED*: No *COPY OF PRESCRIPTION DRUG MONITORING REPORT IN PATIENT TOM: No Referrals: Radha Armstrong PA [Primary Care Provider] - Care Plan Goals: Patient treated with Phenergan which improved her headache made it tolerable then we'll go ahead and give her Toradol 60 IM and send her home to rest she is to follow-up with primary as needed - My Orders Last 24 Hours: My Active Orders 01/01/19 19:27 Ketorolac [Toradol] 60 mg IM ONETIME ONE - Assessment/Plan Last 24 Hours: My Active Orders 01/01/19 19:27 Ketorolac [Toradol] 60 mg IM ONETIME ONE
== END 2019-01-01 19:48 | disposition home or self-care (01) ==
LOC: LL.ED 17:52
DX: G43.909 Migraine, unspecified, not intractable, without status migrainosus (principal); Z88.8 Allergy status to other drugs, medicaments and biological substances; Z88.1 Allergy status to other antibiotic agents; Z88.2 Allergy status to sulfonamides; Z79.899 Other long term (current) drug therapy
CPT/HCPCS: 96372; 99283; J1885; J2550

== ENCOUNTER 2020-06-23 12:14 | Emergency (ER) | payer MEDICARE, BC, OTHER ==
--- NOTE | 2020-06-23 12:20 | EDM.PDOC ---
ED HPI GENERAL MEDICAL PROBLEM - General Chief Complaint: General Stated Complaint: cough, SOB, congestion Time Seen by Provider: 06/23/20 12:15 Source of Information: Reports: Patient, Old Records ([facility] chart/EMR) History Limitations: Reports: No Limitations - History of Present Illness INITIAL COMMENTS - FREE TEXT/NARRATIVE: Patient was brought to the emergency room via private automobile by her for evaluation of a one-week history of progressive nonspecific dyspnea and mostly nonproductive cough with the patient swallowing any of her sputum. She has been following COVID-19 infection precautions as per CDC guidelines with no known exposure to infection. The patient denies any chest pressure, heart flutter, dizziness, orthostasis, orthopnea, diaphoresis, paresthesias, etc., although occasional nonspecific pleuritic type symptoms and decreased exercise tolerance during the last week. No recent history of abdominal pain, heartburn, nausea, diarrhea, melena, gross hematochezia, or any food intolerance, including fatty foods, etc., with stable constipation at this time. She denies any gross hematuria, colic, or other UTI symptoms. The patient also denies any recent fever, wheezing, recent antipyretic medication, etc. with the patient using an OTC cold and cough preparations at this time. Onset: Gradual Onset Date: 06/15/20 Onset Time: 22:00 Duration: Getting Worse, Intermittent Location: Reports: Chest (Pleurisy as above). Denies: Head, Face, Neck, Abdomen, Back, Upper Extremity, Left, Upper Extremity, Right, Radiates to Quality: Reports: Same as Previous Episode, Sharp Severity: Moderate Improves with: Reports: None Worsens with: Reports: None Context: Reports: Other (As above). Denies: Sick Contact, Trauma Associated Symptoms: Reports: Chest Pain (Pleurisy), Cough, cough w sputum, Shortness of Breath. Denies: Confusion, Diaphoresis, Fever/Chills, Headaches, Loss of Appetite, Malaise, Nausea/Vomiting, Rash, Syncope, Weakness Treatments LATH HAND: Reports: Other Medication(s) - Related Data Allergies Allergy/AdvReac Type Severity Reaction Status Date / Time ondansetron Allergy UNKNOWN Verified 06/23/20 12:18 [From Zofran (as hydrochloride)] Penicillins Allergy Hives Verified 06/23/20 12:18 azithromycin [From Zithromax] AdvReac Nausea and Verified 06/23/20 12:18 Vomiting cefprozil [From Cefzil] AdvReac Nausea and Verified 06/23/20 12:18 Vomiting ciprofloxacin [From Cipro] AdvReac Nausea and Verified 06/23/20 12:18 Vomiting ciprofloxacin HCl AdvReac Nausea and Verified 06/23/20 12:18 [From Cipro] Vomiting methylprednisolone AdvReac Nausea and Verified 06/23/20 12:18 [From Medrol] Vomiting Sulfa (Sulfonamide AdvReac Nausea and Verified 06/23/20 12:18 Antibiotics) Vomiting Home Meds: Home Meds Linaclotide [Linzess] 145 mcg PO DAILY PRN 12/28/16 [History] Promethazine [Phenergan] 25 mg PO Q8H PRN #6 tablet 12/28/16 [Rx] Acetaminophen [Tylenol] 650 mg PO Q4H PRN tablet 03/05/18 [Rx] Omeprazole 20 mg PO DAILY PRN 06/12/18 [History] Levothyroxine Sodium [Synthroid] 25 mcg PO DAILY 06/18/19 [History] bisacodyL [Dulcolax] 10 mg PO BEDTIME PRN 06/18/19 [History] Albuterol [Proventil HFA] 2 puff INH Q4H PRN #1 inhaler 06/23/20 [Rx] Famotidine [Pepcid] 20 mg PO BID #60 tab 06/23/20 [Rx] Simvastatin [Zocor] 1 tab PO ASDIRECTED 06/23/20 [History] Past Medical History HEENT History: Reports: Allergic Rhinitis, Impaired Vision, Other (See Below). Denies: Cataract, Glaucoma, Hard of Hearing, Macular Degeneration, Retinal Detachment Other HEENT History: Patient wears glasses. Cardiovascular History: Reports: Heart Murmur, High Cholesterol, Syncope. Denies: Afib, Aneurysm, Arrhythmia, Blood Clots/VTE/DVT, CAD, Cardiomyopathy, Heart Failure, Hypertension, AL, PVD Other Cardiovascular History: Moderate to severe hyperlipidemia/dyslipidemia. Near syncopal episode in 2010. Dependent lymphedema. Moderate tricuspid valve insufficiency by echocardiogram in 2019 as below. Respiratory History: Reports: COPD, Intubation, Previous, Other (See Below). Denies: Asthma, Bronchitis, Recurrent, Intubation, Difficult, PE, Pneumothorax, Sleep Apnea, TB Other Respiratory History: COPD by chest x-ray with no previous work-up or current medical therapy required. Gastrointestinal History: Reports: Chronic Constipation, Diverticulosis, Gastritis, GERD, Hemorrhoids, Hiatal Hernia, Other (See Below). Denies: Celiac Disease, Cholelithiasis, Chronic Diarrhea, Colon Polyp, Fecal Incontinence, GI Bleed, Hepatitis, Irritable Bowel Syndrome, Jaundice, PUD Other Gastrointestinal History: Small hiatal hernia and mild gastritis by EGD and additional sigmoid diverticulosis by colonoscopy both on 06/12/2018. Benign left-sided hepatic cyst by CT scan on 06/30/2018. Chronic constipation with tortuous colon by colonoscopy as above. Genitourinary History: Reports: UTI, Recurrent, Other (See Below) (Note urostomy placement in 1984 as below.). Denies: Acute Renal Failure, Chronic Renal Insuffiency, Renal Calculus, Retention, Urinary, STD, Urinary Incontinence [employer] History: Reports: . Denies: Dysfunctional Uterine Bleeding, Endometriosis, Fibroids : 4 Para: 4 LMP (Approximate): Other (See Below) Other [employer] History: Full term without complications during pregnancies or deliveries. Surgical menopause as below. Right ovarian cyst. History of cervical cancer as below with no radiation or chemotherapy required Musculoskeletal History: Reports: Arthritis, Back Pain, Chronic, Osteoarthritis, Osteoporosis, Other (See Below). Denies: Amputation, Fracture, Gout, Neck Pain, Chronic, RA, SLE Other Musculoskeletal History: Scoliosis. Neurological History: Reports: Headaches, Chronic, Migraines, Vertigo, Other (See Below). 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 Denies: Abuse, Victim of, ADD, ADHD, Addiction, Dementia, Psych Hospitalization(s), PTSD, Suicide Attempt, Suicidal Ideation Endocrine/Metabolic History: Reports: Hypothyroidism, Other (See Below). Denies: Diabetes, Gestational, Diabetes, Type I, Diabetes, Type II, Diabetes Mellitus, Type 3c, IDDM Other Endocrine/Metabolic History: Hypoalbuminemia. Hyponatremia. Recurrent dehydration of unknown etiology. Hematologic History: Reports: Anemia, Blood Transfusion(s), Other (See Below). Denies: Iron Deficiency Other Hematologic History: Transfusion of 2 units of packed red blood cells post hysterectomy. Immunologic History: Reports: None. Denies: AIDS, HIV, SLE Oncologic (Cancer) History: Reports: Cervix. Denies: Basal Cell Carcinoma, Breast, Colon, Hodgkin's Lymphoma, Leukemia, Lymphoma, Malignant Melanoma, Metastatic, Non-Hodgkin's Lymphoma, Ovarian, Squamous Cell Carcinoma, Uterine Other Oncologic History: Cervical cancer as above with hysterectomy as below required. Dermatologic History: Reports: None. Denies: Eczema, Psoriasis - Infectious Disease History Infectious Disease History: Reports: Chicken Pox, Measles, Mumps. Denies: C- Difficile, Meningitis, Mononucleosis, MRSA, Novel Coronavirus, Pertussis (Whooping Cough), Rheumatic Fever, Rubella, Scarlet Fever, Shingles, TB, VRE - Past Surgical History Head Surgeries/Procedures: Reports: None HEENT Surgical History: Reports: Naso-Sinus Surgery, Oral Surgery. Denies: Adenoidectomy, Cataract Surgery, Eye Surgery, Laser Surgery, Myringotomy w Tube(s), Retinal, Tonsillectomy Other HEENT Surgeries/Procedures: [place] teeth extraction 4 in the . Sinus surgery in September 2015. Cardiovascular Surgical History: Reports: None. Denies: Varicose Respiratory Surgical History: Reports: None. Denies: Thoracentesis GI Surgical History: Reports: Appendectomy, Colonoscopy, EGD, Polypectomy, Other (See Below). Denies: Cholecystectomy, Hernia, Abdominal, Hernia, Inguinal, Hernia Repair/Other Other GI Surgeries/Procedures: EGD and colonoscopy on 06/12/2018. Previous rectal fissure repair. Female Surgical History: Reports: Hysterectomy, Nephrectomy, Tubal Ligation. Denies: Breast Biopsy, Breast Reduction, Section, Cervical Cryotherapy, D&C, Salpingo-Oophorectomy Other Female Surgeries/Procedures: Complete hysterectomy with left-sided nephrectomy secondary to cervical cancer at the [facility] in June 1985. B ilateral tubal ligation in 1980. Urostomy in 1984 as above with subsequent reversal. Endocrine Surgical History: Reports: None. Denies: Thyroid Biopsy Neurological Surgical History: Reports: None. Denies: C-Spine, Discectomy, Laminectomy, Scoliosis, Spinal Fusion, Thoracic Spine, Vertebroplasty Musculoskeletal Surgical History: Reports: None. Denies: Arthroscopic Procedure, Carpal Tunnel, Ganglion Cyst, ORIF, Shoulder Surgery Oncologic Surgical History: Reports: None Dermatological Surgical History: Reports: None - Past Imaging History Past Imaging History: Reports: Cardiac Echo (02/17/2019 with ejection fraction of 65-70% and otherwise results as above.), Carotid US (01/20/2020 and 06/28/16), CAT Scan (CT of the sinuses on 08/20/13. CT of the head on 06/28/16, 02/22/16, and 11/24/13. CTA of the chest on 02/14/16. CT of the abdomen and pelvis on 06/30/2018 and 02/14/16.), Mammogram (Last mammogram on 11/23/2019.), MRA (MRA of the brain and neck on 12/01/13), MRI (MRI of the brain on 12/01/13), Stress Testing (Overall negative Cardiolite stress test on 03/06/2018 with ejection fraction of 84% and questionable inferior diaphragmatic artifact increased from previous Cardiolite stress test on 06/25/13 with ejection fraction of 69% at that time with additional previous evaluation on 11/23/10.), Ultrasound (Bladder ultrasound on 03/17/13. Left breast ultrasound on 11/08/11.) Social & Family History - Family History HEENT: Reports: Allergic Rhinitis, Cataract, Macular Degeneration, Other (See Below). Denies: Glaucoma, Retinal Detachment Other HEENT Family History: Father with nasal polyps and allergic rhinitis. Father with macular degeneration. Mother with cataracts. Cardiac: Reports: Bypass, CAD, Cardiomyopathy, Heart Failure, High Cholesterol, Hypertension, Other (See Below). Denies: Afib, Aneurysm, Arrhythmia, Blood Clots/VTE/DVT, Heart Murmur, AL, PVD/COD, Syncope Other Cardiac Family History: Mother with four-vessel CABG at age 80 with fatal CHF at age 89. No history of AL. Hyperlipidemia in 3 brothers and 1 sister. 2 brothers with hypertension. Respiratory: Reports: None. Denies: Asthma, COPD, PE, Pneumothorax, Sleep Apnea GI: Reports: Inflammatory Bowel Disease, Pancreatitis, Other (See Below). Denies: Bowel Obstruction, Celiac Disease, Cholelithiasis, Chronic Constipation, Colon Polyps, GERD, GI bleed, Irritable Bowel Syndrome, PUD Other GI Family History: Daughter with ulcerative colitis. Pancreatic cancer with pancreatitis in 2 maternal great aunts as below. : Reports: None. Denies: Renal Calculus, Renal Disease/Insufficiency OBGYN: Reports: None. Denies: Dysfunctional uterine bleeding, Endometriosis, Recurrent Spontaneous Musculoskeletal: Reports: Arthritis, Osteoarthritis. Denies: Gout, RA, SLE Neurological: Reports: CVA, Other (See Below). Denies: Alzheimers Disease, Cerebral Aneurysms, Dementia, Migraines, MS, Parkinson's, Seizure, TIA Other Neurological Family History: Paternal grandfather with CVA in his 70s fatal secondary to subsequent complications a few years later. Psychiatric: Reports: None. Denies: Abuse, Victim of, ADD, ADHD, Anxiety, Depression, Psych Hospitalization(s), PTSD, Suicide Attempt Endocrine/Metabolic: Reports: Diabetes, type II, Other (See Below). Denies: Diabetes, Gestational, Diabetes, Type I, Diabetes Mellitus, Type 3c, Hypothyroidism, IDDM Other Endocrine/Metabolic Family History: Brother with diabetes mellitus Hematologic: Reports: None. Denies: SLE Immunologic: Reports: None. Denies: AIDS, HIV, SLE Dermatologic: Reports: None. Denies: Eczema, Psoriasis Oncologic: Reports: Liver, Metastatic, Pancreatic, Skin, Other (See Below). Denies: Breast, Cervix, Colon, Hodgkin's Lymphoma, Leukemia, Lymphoma, Non-Hodgkin's Lymphoma, Ovarian Other Oncologic Family History: Maternal grandfather from unknown type of cancer possibly hepatic with secondary pulmonary metastases fatal in his 60s. He did use tobacco. 2 paternal uncles with unknown type of fatal cancer in their 60s although one with apparent bone cancer and another with unknown primary but metastatic in nature. Maternal great aunts 2 with fatal pancreatic cancer in their 90s. Brother with unknown type of skin cancer. - Tobacco Use Smoking Status *Q: Never Smoker Tobacco Use Within Last Twelve Months: No Used Tobacco, but Quit: No Smoking Cessation Information Provided To Patient: No Second Hand Smoke Exposure: No Second Hand Smoke Education Provided: No - Caffeine Use Caffeine Use: Reports: Coffee (10 cups/day), Soda ( 1 soda per week). Denies: Energy Drinks, Tea - Alcohol Use Alcohol Use History: Yes Days Per Week of Alcohol Use: 0 Number of Drinks Per Day: 1 Number of Drinks Per Day Comment: Usually beer for holidays. No previous DWIs, problems with alcohol abuse, etc. Total Drinks Per Week: 0 Alcohol Use in Last Twelve Months: Yes Alcohol Use Frequency: Rarely - Recreational Drug Use Recreational Drug Use: No Drug Use in Last 12 Months: No Recreational Drug Type: Denies: Amphetamines (Speed), Cocaine, Heroin, Inhalants (Glues, Solvents, Aerosols), LSD (Acid), Marijuana/Hashish, Methamphetamine, Morphine, Oxycodone - Living Situation & Occupation Living situation: Reports: (1972, 4 children) Occupation: Retired (Retired from [employer] at age 59) ED ROS GENERAL - Review of Systems Review Of Systems: Comprehensive ROS is negative, except as noted in HPI. ED EXAM, GENERAL - Physical Exam Exam: See Below Exam Limited By: No Limitations General Appearance: Alert, WD/WN, No Apparent Distress Eye Exam: Bilateral Eye: EOMI, Normal Inspection (Patient is wearing glasses. No nystagmus.), PERRL Ears: Normal External Exam, Normal Canal, Hearing Grossly Normal, Normal TMs Nose: Normal Mucosa, No Blood, Clear Rhinorrhea Throat/Mouth: Normal Inspection, Normal Lips, Normal Teeth, Normal Gums, Normal Oropharynx, Normal Voice, No Airway Compromise. No: Dysphagia, Perioral Cyanosis Head: Atraumatic, Normocephalic. No: Facial Swelling, Facial Tenderness, Sinus Tenderness Neck: Supple, Non-Tender, Full Range of Motion, Carotid Bruit (Mild bilateral carotid bruits). No: Lymphadenopathy (L), Lymphadenopathy (R), Thyromegaly Respiratory/Chest: No Respiratory Distress, No Accessory Muscle Use, Chest Non- Tender, Rales (Mild bilateral basilar). No: Rhonchi, Pleural Rub, Retractions Cardiovascular: Normal Peripheral Pulses, Regular Rate, Rhythm, No Gallop, No JVD, No Murmur, No Rub. No: No Edema (Dependent edema as below), Gallop/S3, Gallop/S4, Friction Rub Peripheral Pulses: 2+: Radial (L), Radial (R), Dorsalis Pedis (L), Dorsalis Pedis (R) GI/Abdominal: Normal Bowel Sounds, Soft, Non-Tender, No Organomegaly, No Distention, No Abnormal Bruit, No Mass. No: Guarding (Female) Exam: Deferred Rectal (Female) Exam: Deferred Back Exam: Full Range of Motion, Other (Mild scoliosis). No: CVA Tenderness (L), CVA Tenderness (R), Muscle Spasm, Paraspinal Tenderness, Vertebral Tenderness Extremities: Normal Range of Motion, Non-Tender, Normal Capillary Refill, Pedal Edema (Stable bilateral lymphedema of the lower extremities). No: Rusty's Sign Neurological: Alert, Oriented, CN II-XII Intact, Normal Cognition, Normal Gait, No Motor/Sensory Deficits Skin Exam: Warm, Dry, Intact, Normal Color, No Rash. No: Diaphoretic, Ecchymosis, Petechiae, Wound/Incision Lymphatic: No Adenopathy EKG INTERPRETATION EKG Date: 06/23/20 Time: 12:59 Rhythm: NSR Rate (Beats/Min): 78 [place]: Normal (Neutral cardiac axis) P-Wave: Present QRS: Normal (0.08 seconds) ST-T: Other (Resolution of previous T wave inversion in lead V1 and borderline T wave inversion in lead V2) QT: Normal MS/PQ Interval: 0.17 seconds with mild pulmonary hypertension by EKGstable Comparison: Change From Previous EKG (As above since 03/05/2018) EKG Interpretation Comments: 1. No acute ischemic changes 2. Pulmonary hypertension by EKG Course - Vital Signs Last Recorded V/S: Last Vital Signs Temp 36.7 C 06/23/20 12:22 Pulse 85 06/23/20 14:30 Resp 23 H 06/23/20 14:30 BP 149/80 H 06/23/20 14:30 Pulse Ox 98 06/23/20 14:30 Vital Signs - 24 hr 06/23/20 06/23/20 06/23/20 12:20 12:22 12:50 Temperature [ 36.7 C Oral] Pulse, 86 94 81 Peripheral [ Pulse Oximetry] Respiratory 28 H 26 H 26 H Rate Blood Pressure 123/75 110/70 135/74 [Left Upper Arm ] O2 Sat by Pulse 96 98 97 Oximetry 06/23/20 06/23/20 06/23/20 13:10 13:40 14:10 Temperature [ Oral] Pulse, 75 72 71 Peripheral [ Pulse Oximetry] Respiratory 22 H 19 19 Rate Blood Pressure 119/66 125/59 L 125/61 [Left Upper Arm ] O2 Sat by Pulse 96 96 97 Oximetry 06/23/20 14:30 Temperature [ Oral] Pulse, 85 Peripheral [ Pulse Oximetry] Respiratory 23 H Rate Blood Pressure 149/80 H [Left Upper Arm ] O2 Sat by Pulse 98 Oximetry - Orders/Labs/Meds Orders: Active Orders 24 hr Category Date Time Status Chest 1V Frontal [CR] Stat Exams 06/23/20 12:22 Taken Chest PE [Ang Chest] [CT] Stat Exams 06/23/20 13:55 Stop Req Isolation [COMM] Routine Oth 06/23/20 12:22 Active Obtain Past Medical Record [OM.PC] Urgent Oth 06/23/20 12:22 Active Peripheral IV Insertion Adult [OM.PC] Stat Oth 06/23/20 12:22 Ordered Resuscitation Status Stat Resus Stat 06/23/20 12:22 Ordered Labs: Laboratory Tests 06/23/20 06/23/20 06/23/20 Range/Units 12:20 12:39 12:45 WBC 4.6 (4.0-10.2) K/uL RBC 4.35 (3.77-5.09) M/uL Hgb 13.1 (11.7-15.5) g/dL Hct 40.0 (34.0-46.0) % MCV 92.0 (84.0-98.0) fL MCH 30.1 (28.2-33.3) pg MCHC 32.8 (31.7-36.0) g/dL RDW 13.7 (11.2-14.1) % Plt Count 229 D (150-350) K/uL Neut % (Auto) 58.4 (45.0-80.0) % Lymph % (Auto) 31.1 (10.0-50.0) % [place] % (Auto) 9.9 (2.0-14.0) % Eos % (Auto) 0.4 (0.0-5.0) % Baso % (Auto) 0.2 (0.0-2.0) % Neut # (Auto) 2.66 (1.40-7.00) K/uL Lymph # (Auto) 1.42 (0.50-3.50) K/uL [place] # (Auto) 0.45 (0.00-1.00) K/uL Eos # (Auto) 0.02 (0.00-0.50) K/uL Baso # (Auto) 0.01 (0.00-0.20) K/uL PT 9.5 (9.5-12.0) SEC INR 0.9 APTT 28.1 (24.5-32.8) SEC D-Dimer, Quantitative (0-400) ng/mL Sodium (136-145) mmol/L Potassium (3.5-5.1) mmol/L Chloride (98-107) mmol/L Carbon Dioxide (21.0-32.0) mmol/L BUN (7-18) mg/dL Creatinine (0.51-1.17) mg/dL Est Cr Clr Drug Dosing Estimated GFR (MDRD) mL/min Glucose (74-106) mg/dL Lactic Acid (0.4-2.0) mmol/L Uric Acid (2.6-7.2) mg/dL Calcium (8.5-10.1) mg/dL Magnesium (1.8-2.4) mg/dL Total Bilirubin (0.2-1.0) mg/dL AST (15-37) U/L ALT (12-78) U/L Alkaline Phosphatase (46-116) IU/L Creatine Kinase (26-308) U/L Creatine Kinase Index (0.0-2.5) % CK-MB (CK-2) (0.00-3.60) ng/mL Troponin I (0.000-0.056) ng/mL NT-Pro-B Natriuret Pep (0-125) pg/mL Total Protein (6.4-8.2) g/dL Albumin (3.4-5.0) g/dL TSH, Ultra Sensitive (0.358-3.740) mIU/mL SARS-CoV-2 RNA (TIAN) Positive H (NEGATIVE) 06/23/20 06/23/20 06/23/20 Range/Units 12:45 12:45 12:45 WBC (4.0-10.2) K/uL RBC (3.77-5.09) M/uL Hgb (11.7-15.5) g/dL Hct (34.0-46.0) % MCV (84.0-98.0) fL MCH (28.2-33.3) pg MCHC (31.7-36.0) g/dL RDW (11.2-14.1) % Plt Count (150-350) K/uL Neut % (Auto) (45.0-80.0) % Lymph % (Auto) (10.0-50.0) % [place] % (Auto) (2.0-14.0) % Eos % (Auto) (0.0-5.0) % Baso % (Auto) (0.0-2.0) % Neut # (Auto) (1.40-7.00) K/uL Lymph # (Auto) (0.50-3.50) K/uL [place] # (Auto) (0.00-1.00) K/uL Eos # (Auto) (0.00-0.50) K/uL Baso # (Auto) (0.00-0.20) K/uL PT (9.5-12.0) SEC INR APTT (24.5-32.8) SEC D-Dimer, Quantitative 549 H (0-400) ng/mL Sodium 135 L (136-145) mmol/L Potassium 3.7 (3.5-5.1) mmol/L Chloride 102 (98-107) mmol/L Carbon Dioxide 26.8 (21.0-32.0) mmol/L BUN 11 (7-18) mg/dL Creatinine 0.82 (0.51-1.17) mg/dL Est Cr Clr Drug Dosing TNP Estimated GFR (MDRD) > 60 mL/min Glucose 102 (74-106) mg/dL Lactic Acid 1.1 (0.4-2.0) mmol/L Uric Acid 3.0 (2.6-7.2) mg/dL Calcium 8.6 (8.5-10.1) mg/dL Magnesium 2.1 (1.8-2.4) mg/dL Total Bilirubin 0.4 (0.2-1.0) mg/dL AST 24 (15-37) U/L ALT 20 (12-78) U/L Alkaline Phosphatase 86 (46-116) IU/L Creatine Kinase 53 (26-308) U/L Creatine Kinase Index 1.7 (0.0-2.5) % CK-MB (CK-2) 0.90 (0.00-3.60) ng/mL Troponin I 0.004 (0.000-0.056) ng/mL NT-Pro-B Natriuret Pep 37 (0-125) pg/mL Total Protein 6.8 (6.4-8.2) g/dL Albumin 3.4 (3.4-5.0) g/dL TSH, Ultra Sensitive 1.591 (0.358-3.740) mIU/mL SARS-CoV-2 RNA (TIAN) (NEGATIVE) Microbiology 06/23/20 12:50 Influenza Type A Antigen Screen - Final Nasal, Unspecified NEGATIVE INFLUENZA A VIRUS AG REFERENCE RANGE: NEGATIVE Influenza Type B Antigen Screen - Final NEGATIVE INFLUENZA B VIRUS AG REFERENCE RANGE: NEGATIVE Meds: Medications Discontinued Medications Generic Name Dose Route Start Last Admin Trade Name Freq PRN Reason Stop Dose Admin Famotidine 40 mg 06/23/20 12:22 06/23/20 12:52 Pepcid IVPUSH 06/23/20 12:23 40 mg ONETIME ONE Administration Sodium Chloride 10 ml 06/23/20 12:22 06/23/20 12:52 Saline Flush FLUSH 10 ml ASDIRECTED PRN Administration Keep Vein Open - Radiology Interpretation Free Text/Narrative:: electronic device monitor shows normal sinus rhythm with heart rate in the 70s with no ectopy or arrhythmia Chest x-ray, portable, shows moderate probable pulmonary obstructive disease with questionable bilateral lower lobe pulmonary fibrosis versus mild beginning pulmonary infiltrates. No cardiomegaly, pneumothorax, or CHF. Mild aortic valve calcification. Official chest x-ray report did not indicate any evidence of pulmonary infiltrates, however. Departure - Departure Time of Disposition: 15:00 Disposition: Home, Self-Care 01 Condition: Good Clinical Impression: D-dimer, elevated, Hyponatremia, Mixed anxiety depressive disorder, Peptic reflux disease, Hypothyroidism (acquired), COVID-19 virus infection COPD (chronic obstructive pulmonary disease) Qualifiers: COPD type: emphysema Emphysema type: panlobular Qualified Code(s): J43.1 - Panlobular emphysema Osteoarthritis Qualifiers: Osteoarthritis location: multiple joints Osteoarthritis type: primary Qualified Code(s): M89.49 - Other hypertrophic osteoarthropathy, multiple sites Chest pain Qualifiers: Chest pain type: chest pain due to myocardial ischemia Ischemic chest pain t ype: unstable angina pectoris Qualified Code(s): I20.0 - Unstable angina - Discharge Information *PRESCRIPTION DRUG MONITORING PROGRAM REVIEWED*: Not Applicable *COPY OF PRESCRIPTION DRUG MONITORING REPORT IN PATIENT TOM: Not Applicable Prescriptions: Famotidine [Pepcid] 20 mg PO BID #60 tab Albuterol [Proventil HFA] 2 puff INH Q4H PRN #1 inhaler PRN Reason: Dyspnea Instructions: COVID-19 Frequently Asked Questions, COVID-19 Referrals: Zunilda Sarabia PA-C [Primary Care Provider] - Forms: ED Department Discharge Additional Instructions: 1. Followup with your regular provider in 14 days as directed for reevaluation and recommended repeat chest x-ray, PA and lateral, CBC, comprehensive metabolic panel, INR, PTT, and D-dimer. Bring these discharge instructions with you to that visit. 2. Strict quarantine, mask use, etc. as discussed until otherwise directed by your regular provider 3. Notify any individual in which you have been in contact with during the last 2 weeks about your current positive COVID-19 infection with recommendations of immediate COVID-19 testing, strict quarantine/isolation/mask use, etc. as discussed 4. Immediately after this visit verify that your cellular telephone's voicemail has been activated and is empty. Also verify that your home telephone's answering machine is operating properly and has space to receive messages. Note that it is sometimes necessary for us to be able to contact you at a later date to discuss your medical care. 5. Please remember that we are ALWAYS here for you and want to answer any que stions you may have. Feel free to call the hospital any time and we call you back KAYLAN. 6. Tylenol 650 mg by mouth every 4 hours and/or OTC ibuprofen 2-3 tabs by mouth every 6 hours with food as directed./needed. You may stagger these medications for 48-72 hours only, which essentially means that you are receiving a pain medication about every 2 hours. 7. Switch to better quality paper masks as discussed 8. If you have to use your inhaler, no one should be present in the room when you use this medication and do recommend that doors be closed, windows open, and no entry of other individuals into that room for at least 2 hours. Always use the provided spacer with this medication. 9. Consider further work-up of your d-dimer elevation at the above follow-up visit depending on your symptoms, clinical course, etc. 10. Consider influenza booster at time of the above follow-up visit. Sepsis Event Note (ED) - Focused Exam Vital Signs: Vital Signs Temp Pulse Resp BP Pulse Ox 06/23/20 14:30 85 23 H 149/80 H 98 06/23/20 14:10 71 19 125/61 97 06/23/20 13:40 72 19 125/59 L 96 06/23/20 13:10 75 22 H 119/66 96 06/23/20 12:50 81 26 H 135/74 97 06/23/20 12:22 36.7 C 94 26 H 110/70 98 06/23/20 12:20 86 28 H 123/75 96 - Problem List & Annotations (1) COVID-19 virus infection SNOMED Code(s): 969580650 Code(s): U07.1 - COVID-19 Status: Acute Priority: High Onset Date: ~06/23/20 Annotation/Comment:: Positive COVID-19 rapid screen in our facility today. Hygiene, isolation, quarantine, contact testing, etc. extensively discussed with the patient. Various therapeutic options were also discussed with the patient with initiation of high-dose Pepcid and Proventil HFA inhalers for now. She is not a candidate for hospitalization and does not wish to have dexamethasone therapy. Close follow-up by regular provider as per discharge instructions. Patient was also counseled on prone positioning, low threshold of contacting this facility and/or her regular provider, etc.. Medications will be delivered by the pharmacy to her home, including inhaler spacer and also better quality paper surgical masks. Influenza booster recommended as per discharge instructions. No indication for antibiotic therapy at this time. Patient may also benefit from an REMY inhibitor for treatment of her COVID 19, although not indicated at this time. (2) COPD (chronic obstructive pulmonary disease) SNOMED Code(s): 91363105 Code(s): J44.9 - CHRONIC OBSTRUCTIVE PULMONARY DISEASE, UNSPECIFIED Status: Acute Priority: Medium Onset Date: 03/04/18 Annotation/Comment:: Evidence of COPD by previous and current chest x-ray with no previous work-up or medical therapy. Consider PFTs in the future once her current infection has resolved. Note chest x-ray report today did not indicate any evidence of pneumonia, however suspect mild bilateral lower lobe pneumonia secondary to current COVID 19 infection both by my evaluation and clinical exam today. Qualifiers: COPD type: emphysema Emphysema type: panlobular Qualified Code(s): J43.1 - Panlobular emphysema (3) D-dimer, elevated SNOMED Code(s): 285604485 Code(s): R79.89 - OTHER SPECIFIED ABNORMAL FINDINGS OF BLOOD CHEMISTRY Status: Acute Priority: High Onset Date: 06/23/20 Annotation/Comment:: Likely secondary to current COVID infection with no evidence of PE or DVT. Initially planned CTA of the chest was canceled secondary to current COVID infection. Various therapeutic options were discussed with the patient, who does not wish to have anticoagulation therapy at this time. Consider venous Doppler studies of the lower extremity, CTA of the chest, etc. depending on her clinical course and symptoms at 2-week follow-up as per discharge instructions. (4) Hyponatremia SNOMED Code(s): 85722746 Code(s): E87.1 - HYPO-OSMOLALITY AND HYPONATREMIA Status: Chronic Priority: Medium Annotation/Comment:: Observe for now with previous history of mild hyponatremia. (5) Mixed anxiety depressive disorder SNOMED Code(s): 372106945 Code(s): F41.8 - OTHER SPECIFIED ANXIETY DISORDERS Status: Chronic Priority: Medium Annotation/Comment:: Stable by patient history (6) Osteoarthritis SNOMED Code(s): 979597329 Code(s): M19.90 - UNSPECIFIED OSTEOARTHRITIS, UNSPECIFIED SITE Status: Chronic Priority: Medium Annotation/Comment:: Stable by patient history Qualifiers: Osteoarthritis location: multiple joints Osteoarthritis type: primary Qualified Code(s): M89.49 - Other hypertrophic osteoarthropathy, multiple sites (7) Peptic reflux disease SNOMED Code(s): 602529066 Code(s): K21.9 - GASTRO-ESOPHAGEAL REFLUX DISEASE WITHOUT ESOPHAGITIS Status: Chronic Priority: Medium Annotation/Comment:: Stable by patient history with high-dose IV Pepcid given in the emergency room with continuation of high-dose oral Pepcid therapy for treatment of her COVID 19 as above. Continue current Prilosec therapy. (8) Chest pain SNOMED Code(s): 57633830 Code(s): R07.9 - CHEST PAIN, UNSPECIFIED Status: Acute Priority: High Onset Date: ~06/15/20 Annotation/Comment:: Atypical chest pain likely secondary to her pleurisy and current COVID-19 infection. Note negative cardiac work-up as above. Symptomatic relief for now. Qualifiers: Chest pain type: chest pain due to myocardial ischemia Ischemic chest pain type: unstable angina pectoris Qualified Code(s): I20.0 - Unstable angina - Problem List Review Problem List Initiated/Reviewed/Updated: Yes - My Orders Last 24 Hours: My Active Orders 06/23/20 12:22 Chest 1V Frontal [CR] Stat Isolation [COMM] Routine Obtain Past Medical Record [OM.PC] Urgent Peripheral IV Insertion Adult [OM.PC] Stat Resuscitation Status Stat 06/23/20 13:55 Chest PE [Ang Chest] [CT] Stat - Assessment/Plan Last 24 Hours: My Active Orders 06/23/20 12:22 Chest 1V Frontal [CR] Stat Isolation [COMM] Routine Obtain Past Medical Record [OM.PC] Urgent Peripheral IV Insertion Adult [OM.PC] Stat Resuscitation Status Stat 06/23/20 13:55 Chest PE [Ang Chest] [CT] Stat Assessment:: As above Plan: As above. Extensive precautions were given to the patient, who is in agreement with the treatment plan. See Patient Instructions for further treatment and plan.
[2020-06-23] MEDS ORDERED: Sodium Chloride 0.9% 10 ML Syringe FLUSH PRN (12:22)
[2020-06-23] MEDS ORDERED: Famotidine 20 MG/2 ML SDV IVPUSH ONE (12:22)
[2020-06-23 13:12] LABS: PTT,PARTIAL THROMBOPLSTIN TIME 28.1 SEC (24.5-32.8)
[2020-06-23 13:23] LABS: CHLORIDE,CL 102 mmol/L (98-107); SODIUM,NA 135 mmol/L (136-145)
[2020-06-23 15:54] VITALS: BP 149/80; PULSE 85
== END 2020-06-23 15:00 | disposition home or self-care (01) ==
LOC: LL.ED 12:14
DX: U07.1 COVID-19 (principal); J43.1 Panlobular emphysema; I20.0 Unstable angina; F41.8 Other specified anxiety disorders; K21.9 Gastro-esophageal reflux disease without esophagitis; E03.9 Hypothyroidism, unspecified; E87.1 Hypo-osmolality and hyponatremia; R79.1 Abnormal coagulation profile; M89.49 Other hypertrophic osteoarthropathy, multiple sites; M41.9 Scoliosis, unspecified; E78.5 Hyperlipidemia, unspecified; Z88.0 Allergy status to penicillin; Z88.1 Allergy status to other antibiotic agents; Z88.2 Allergy status to sulfonamides; Z88.8 Allergy status to other drugs, medicaments and biological substances; Z79.899 Other long term (current) drug therapy; Z90.49 Acquired absence of other specified parts of digestive tract; Z90.710 Acquired absence of both cervix and uterus
CPT/HCPCS: 36415; 71045; 80053; 82550; 82553; 83605; 83735; 83880; 84443; 84484; 84550; 85025; 85379; 85610; 85730; 87804; 93005; 96374; 99285; J3490; 99283

== ENCOUNTER 2020-06-28 12:01 | Emergency (ER) | payer MEDICARE, BC ==
[2020-06-28 12:10] VITALS: BP 127/80; PULSE 93
[2020-06-28] MEDS ORDERED: Sodium Chloride 0.9% 10 ML Syringe FLUSH PRN (12:10)
[2020-06-28] MEDS: Sodium Chloride 0.9% 1,000 ML IV ONE ×2 (12:44→14:21)
[2020-06-28 12:46] LABS: CHLORIDE,CL 100 mmol/L (98-107); SODIUM,NA 134 mmol/L (136-145)
[2020-06-28] MEDS: Promethazine 25 MG/ML SDV IM ONE (13:16)
[2020-06-28] MEDS: Iopamidol 755 Mg/ML 100 ML Bottle IVPUSH STA (14:33)
--- NOTE | 2020-06-28 16:33 | EDM.PDOC ---
ED HPI GENERAL MEDICAL PROBLEM - General Chief Complaint: General Stated Complaint: dizziness, nausea, + covid-19 Time Seen by Provider: 06/28/20 12:05 Source of Information: Reports: Patient History Limitations: Reports: No Limitations - History of Present Illness INITIAL COMMENTS - FREE TEXT/NARRATIVE: Patient comes in with history of dry heaves/emesis. Has had Covid 19 diagnosis for several weeks. Still cough/some shortness of breath but is improving in that area. No fevers. No bowel changes. No other reported acute changes. - Related Data Allergies Allergy/AdvReac Type Severity Reaction Status Date / Time ondansetron Allergy UNKNOWN Verified 06/28/20 12:11 [From Zofran (as hydrochloride)] Penicillins Allergy Hives Verified 06/28/20 12:11 azithromycin [From Zithromax] AdvReac Nausea and Verified 06/28/20 12:11 Vomiting cefprozil [From Cefzil] AdvReac Nausea and Verified 06/28/20 12:11 Vomiting ciprofloxacin [From Cipro] AdvReac Nausea and Verified 06/28/20 12:11 Vomiting ciprofloxacin HCl AdvReac Nausea and Verified 06/28/20 12:11 [From Cipro] Vomiting methylprednisolone AdvReac Nausea and Verified 06/28/20 12:11 [From Medrol] Vomiting Sulfa (Sulfonamide AdvReac Nausea and Verified 06/28/20 12:11 Antibiotics) Vomiting Home Meds: Home Meds Linaclotide [Linzess] 145 mcg PO Q3D 12/28/16 [History] Promethazine [Phenergan] 25 mg PO Q8H PRN #6 tablet 12/28/16 [Rx] Acetaminophen [Tylenol] 650 mg PO Q4H PRN tablet 03/05/18 [Rx] Levothyroxine Sodium [Synthroid] 25 mcg PO DAILY 06/18/19 [History] bisacodyL [Dulcolax] 10 mg PO Q3D 06/18/19 [History] Albuterol [Proventil HFA] 2 puff INH Q4H PRN #1 inhaler 06/23/20 [Rx] Famotidine [Pepcid] 20 mg PO BID #60 tab 06/23/20 [Rx] Simvastatin [Zocor] 1 tab PO ASDIRECTED 06/23/20 [History] Naproxen Sodium [Aleve] 2 tab PO BID PRN 06/28/20 [History] Past Medical History HEENT History: Reports: Allergic Rhinitis, Impaired Vision, Other (See Below) Other HEENT History: Patient wears glasses. Cardiovascular History: Reports: Heart Murmur, High Cholesterol, Syncope Other Cardiovascular History: Moderate to severe hyperlipidemia/dyslipidemia. Near syncopal episode in 2011. Dependent lymphedema. Moderate tricuspid valve insufficiency by echocardiogram in 2019 as below. Respiratory History: Reports: COPD, Intubation, Previous, Other (See Below) Other Respiratory History: COPD by chest x-ray with no previous work-up or current medical therapy required. Gastrointestinal History: Reports: Chronic Constipation, Diverticulosis, Gastritis, GERD, Hemorrhoids, Hiatal Hernia, Other (See Below) Other Gastrointestinal History: Small hiatal hernia and mild gastritis by EGD and additional sigmoid diverticulosis by colonoscopy both on 06/12/2018. Benign left-sided hepatic cyst by CT scan on 06/30/2018. Chronic constipation with tortuous colon by colonoscopy as above. Genitourinary History: Reports: UTI, Recurrent, Other (See Below) Other Genitourinary History: history of urostomy 1985 HYDROMETER TESTER History: Reports: Other HYDROMETER TESTER History: Full term without complications during pregnancies or deliveries. Surgical menopause as below. Right ovarian cyst. History of cervical cancer as below with no radiation or chemotherapy required Musculoskeletal History: Reports: Arthritis, Back Pain, Chronic, Osteoarthritis, Osteoporosis, Other (See Below) Other Musculoskeletal History: Scoliosis. Neurological History: Reports: Headaches, Chronic, Migraines, Vertigo, Other (See Below) Other Neuro History: Right frontal lobe venous angioma by MRI scan on 12/01/13 Psychiatric History: Reports: Anxiety, Depression Endocrine/Metabolic History: Reports: Hypothyroidism, Other (See Below) Other Endocrine/Metabolic History: Hypoalbuminemia. Hyponatremia. Recurrent dehydration of unknown etiology. Hematologic History: Reports: Anemia, Blood Transfusion(s), Other (See Below) Other Hematologic History: Transfusion of 2 units of packed red blood cells post hysterectomy. Immunologic History: Reports: None Oncologic (Cancer) History: Reports: Cervix Other Oncologic History: Cervical cancer as above with hysterectomy as below required. Dermatologic History: Reports: None - Infectious Disease History Infectious Disease History: Reports: Chicken Pox, Measles, Mumps. Denies: C- Difficile, Meningitis, Mononucleosis, MRSA, Novel Coronavirus, Pertussis (Whooping Cough), Rheumatic Fever, Rubella, Scarlet Fever, Shingles, TB, VRE - Past Surgical History Head Surgeries/Procedures: Reports: None HEENT Surgical History: Reports: Naso-Sinus Surgery, Oral Surgery Other HEENT Surgeries/Procedures: Vincent teeth extraction 4 in the . Sinus surgery in September 2015. Cardiovascular Surgical History: Reports: None Respiratory Surgical History: Reports: None GI Surgical History: Reports: Appendectomy, Colonoscopy, EGD, Polypectomy, Other (See Below) Other GI Surgeries/Procedures: EGD and colonoscopy on 06/12/2018. Previous rectal fissure repair. Female Surgical History: Reports: Hysterectomy, Nephrectomy, Tubal Ligation Other Female Surgeries/Procedures: Complete hysterectomy with left-sided nephrectomy secondary to cervical cancer at the [facility] in June 1985. Bilateral tubal ligation in 1980. Urostomy in 1984 as above with subsequent reversal. Endocrine Surgical History: Reports: None Neurological Surgical History: Reports: None Musculoskeletal Surgical History: Reports: None Oncologic Surgical History: Reports: None Dermatological Surgical History: Reports: None - Past Imaging History Past Imaging History: Reports: Cardiac Echo (02/17/2019 with ejection fraction of 65-70% and otherwise results as above.), Carotid US (01/20/2020 and 06/28/16), CAT Scan (CT of the sinuses on 08/20/13. CT of the head on 06/28/16, 02/22/16, and 11/24/13. CTA of the chest on 02/14/16. CT of the abdomen and pelvis on 06/30/2018 and 02/14/16.), Mammogram (Last mammogram on 11/23/2019.), MRA (MRA of the brain and neck on 12/01/13), MRI (MRI of the brain on 12/01/13), Stress Testing (Overall negative Cardiolite stress test on 03/06/2018 with ejection fraction of 84% and questionable inferior diaphragmatic artifact increased from previous Cardiolite stress test on 06/25/13 with ejection fraction of 69% at that time with additional previous evaluation on 11/23/10.), Ultrasound (Bladder ultrasound on 03/17/13. Left breast ultrasound on 11/08/11.) Social & Family History - Family History HEENT: Reports: Allergic Rhinitis, Cataract, Macular Degeneration, Other (See Below) Other HEENT Family History: Father with nasal polyps and allergic rhinitis. Father with macular degeneration. Mother with cataracts. Cardiac: Reports: Bypass, CAD, Cardiomyopathy, Heart Failure, High Cholesterol, Hypertension, Other (See Below) Other Cardiac Family History: Mother with four-vessel CABG at age 80 with fatal CHF at age 89. No history of VA. Hyperlipidemia in 3 brothers and 1 sister. 2 brothers with hypertension. Respiratory: Reports: None GI: Reports: Inflammatory Bowel Disease, Pancreatitis, Other (See Below) Other GI Family History: Daughter with ulcerative colitis. Pancreatic cancer with pancreatitis in 2 maternal great aunts as below. : Reports: None OBGYN: Reports: None Musculoskeletal: Reports: Arthritis, Osteoarthritis Neurological: Reports: CVA, Other (See Below) Other Neurological Family History: Paternal grandfather with CVA in his 70s fatal secondary to subsequent complications a few years later. Psychiatric: Reports: None Endocrine/Metabolic: Reports: Diabetes, type II, Other (See Below) Other Endocrine/Metabolic Family History: Brother with diabetes mellitus Hematologic: Reports: None Immunologic: Reports: None Dermatologic: Reports: None Oncologic: Reports: Liver, Metastatic, Pancreatic, Skin, Other (See Below) Other Oncologic Family History: Maternal grandfather from unknown type of cancer possibly hepatic with secondary pulmonary metastases fatal in his 60s. He did use tobacco. 2 paternal uncles with unknown type of fatal cancer in their 60s although one with apparent bone cancer and another with unknown primary but metastatic in nature. Maternal great aunts 2 with fatal pancreatic cancer in their 90s. Brother with unknown type of skin cancer. - Tobacco Use Smoking Status *Q: Never Smoker Second Hand Smoke Exposure: No - Caffeine Use Caffeine Use: Reports: Coffee (10 cups/day), Soda ( 1 soda per week). Denies: Energy Drinks, Tea - Recreational Drug Use Recreational Drug Use: No - Living Situation & Occupation Living situation: Reports: (1972, 4 children) Occupation: Retired (Retired from [employer] at age 59) [facility] - Review of Systems Review Of Systems: See Below Constitutional: Reports: Fatigue, Decreased Appetite, Weight Loss (5 pounds). Denies: Fever, Chills, Night Sweats, Diaphoresis HEENT: Denies: Ear Pain, Nosebleed, Rhinitis, Sinus Problem, Throat Pain, Throat Swelling, Vision Change Respiratory: Reports: Shortness of Breath, Cough, Sputum. Denies: Wheezing, Pleuritic Chest Pain, Hemoptysis Cardiovascular: Denies: Chest Pain, Edema, Lightheadedness, Orthopnea, Palpitations, PND, Syncope GI/Abdominal: Reports: Nausea, Vomiting. Denies: Abdominal Pain, Constipation, Diarrhea, Hematemesis, Hematochezia : Reports: No Symptoms Musculoskeletal: Reports: Other (no acute changes reported) Skin: Reports: No Symptoms Neurological: Reports: No Symptoms Psychiatric: Reports: No Symptoms ED EXAM, GENERAL - Physical Exam Exam: See Below Exam Limited By: No Limitations General Appearance: Alert, WD/WN, No Apparent Distress Eye Exam: Bilateral Eye: EOMI, PERRL Ears: Normal External Exam, Hearing Grossly Normal Nose: No: Nasal Deformity, Nasal Swelling, Nasal Drainage Throat/Mouth: Normal Lips, Normal Voice, No Airway Compromise Head: Atraumatic, Normocephalic Neck: Normal Inspection, Supple, Non-Tender, Full Range of Motion. No: Lymphadenopathy (L), Lymphadenopathy (R) Respiratory/Chest: No Respiratory Distress, Lungs Clear, No Accessory Muscle Use, Chest Non-Tender, Decreased Breath Sounds (throughout) Cardiovascular: Normal Peripheral Pulses, Regular Rate, Rhythm, No Edema, No Murmur Peripheral Pulses: 2+: Radial (L), Radial (R) GI/Abdominal: Soft, Non-Tender, No Distention, Abnormal Bowel Sounds (diminished throughout) (Female) Exam: Deferred Rectal (Female) Exam: Deferred Back Exam: Normal Inspection Extremities: Normal Range of Motion, Non-Tender, No Pedal Edema Neurological: Alert, Oriented, Normal Cognition, No Motor/Sensory Deficits Psychiatric: Normal Affect, Normal Mood Skin Exam: Warm, Dry, Intact, Normal Color Course - Vital Signs Last Recorded V/S: Last Vital Signs Temp 36.3 C 06/28/20 12:07 Pulse 93 06/28/20 12:07 Resp 16 06/28/20 12:07 BP 127/80 06/28/20 12:07 Pulse Ox 95 06/28/20 12:07 - Orders/Labs/Meds Orders: Active Orders 24 hr Category Date Time Status Chest 1V Frontal [CR] Stat Exams 06/28/20 12:11 Taken PE Chest [Ang Chest] [CT] Stat Exams 06/28/20 13:43 Taken CULTURE URINE [RM] Routine Lab 06/28/20 15:38 Ordered Sodium Chloride 0.9% [Saline Flush] Med 06/28/20 12:10 Active 10 ml FLUSH ASDIRECTED PRN Isolation [COMM] Routine Oth 06/28/20 12:07 Active Saline Lock Insert [OM.PC] Routine Oth 06/28/20 12:10 Ordered Medication Orders Sodium Chloride (Saline Flush) 10 ml FLUSH ASDIRECTED PRN PRN Reason: Keep Vein Open Labs: Laboratory Tests 06/28/20 06/28/20 06/28/20 Range/Units 12:24 12:24 12:24 WBC 7.1 (4.0-10.2) K/uL RBC 4.73 (3.77-5.09) M/uL Hgb 14.4 (11.7-15.5) g/dL Hct 42.6 (34.0-46.0) % MCV 90.1 (84.0-98.0) fL MCH 30.4 (28.2-33.3) pg MCHC 33.8 (31.7-36.0) g/dL RDW 13.4 (11.2-14.1) % Plt Count 323 D (150-350) K/uL Neut % (Auto) 65.5 (45.0-80.0) % Lymph % (Auto) 22.0 (10.0-50.0) % [place] % (Auto) 11.4 (2.0-14.0) % Eos % (Auto) 1.0 (0.0-5.0) % Baso % (Auto) 0.1 (0.0-2.0) % Neut # (Auto) 4.64 (1.40-7.00) K/uL Lymph # (Auto) 1.56 (0.50-3.50) K/uL [place] # (Auto) 0.81 (0.00-1.00) K/uL Eos # (Auto) 0.07 (0.00-0.50) K/uL Baso # (Auto) 0.01 (0.00-0.20) K/uL D-Dimer, Quantitative 1200 H (0-400) ng/mL Sodium 134 L (136-145) mmol/L Potassium 3.5 (3.5-5.1) mmol/L Chloride 100 (98-107) mmol/L Carbon Dioxide 23.9 (21.0-32.0) mmol/L BUN 15 (7-18) mg/dL Creatinine 0.80 (0.51-1.17) mg/dL Est Cr Clr Drug Dosing 53.28 mL/min Estimated GFR (MDRD) > 60 mL/min Glucose 117 H (74-106) mg/dL Lactic Acid (0.4-2.0) mmol/L Calcium 9.2 (8.5-10.1) mg/dL Magnesium 2.0 (1.8-2.4) mg/dL Total Bilirubin 0.6 (0.2-1.0) mg/dL AST 39 H (15-37) U/L ALT 103 H (12-78) U/L Alkaline Phosphatase 99 (46-116) IU/L Total Protein 7.3 (6.4-8.2) g/dL Albumin 3.6 (3.4-5.0) g/dL Specimen Type Urine Color Urine Appearance Urine pH (5.0-9.0) Ur Specific [place] (1.005-1.030) Urine Protein (NEGATIVE) mg/dL Urine Glucose (UA) (NEGATIVE) mg/dL Urine Ketones (NEGATIVE) mg/dL Urine Occult Blood (NEGATIVE) Urine Nitrite (NEGATIVE) Urine Bilirubin (NEGATIVE) Urine Urobilinogen (0.2-1.0) E.U./dL Ur Leukocyte Esterase (NEGATIVE) U Hyaline Cast (Auto) Urine RBC /HPF Urine WBC /HPF Ur Epithelial Cells /LPF Urine Bacteria (NONE TO FEW) /HPF Urine Mucus (NEGATIVE) /LPF Urine Yeast (NEGATIVE) /HPF 06/28/20 06/28/20 Range/Units 12:24 12:40 WBC (4.0-10.2) K/uL RBC (3.77-5.09) M/uL Hgb (11.7-15.5) g/dL Hct (34.0-46.0) % MCV (84.0-98.0) fL MCH (28.2-33.3) pg MCHC (31.7-36.0) g/dL RDW (11.2-14.1) % Plt Count (150-350) K/uL Neut % (Auto) (45.0-80.0) % Lymph % (Auto) (10.0-50.0) % [place] % (Auto) (2.0-14.0) % Eos % (Auto) (0.0-5.0) % Baso % (Auto) (0.0-2.0) % Neut # (Auto) (1.40-7.00) K/uL Lymph # (Auto) (0.50-3.50) K/uL [place] # (Auto) (0.00-1.00) K/uL Eos # (Auto) (0.00-0.50) K/uL Baso # (Auto) (0.00-0.20) K/uL D-Dimer, Quantitative (0-400) ng/mL Sodium (136-145) mmol/L Potassium (3.5-5.1) mmol/L Chloride (98-107) mmol/L Carbon Dioxide (21.0-32.0) mmol/L BUN (7-18) mg/dL Creatinine (0.51-1.17) mg/dL Est Cr Clr Drug Dosing mL/min Estimated GFR (MDRD) mL/min Glucose (74-106) mg/dL Lactic Acid 1.9 (0.4-2.0) mmol/L Calcium (8.5-10.1) mg/dL Magnesium (1.8-2.4) mg/dL Total Bilirubin (0.2-1.0) mg/dL AST (15-37) U/L ALT (12-78) U/L Alkaline Phosphatase (46-116) IU/L Total Protein (6.4-8.2) g/dL Albumin (3.4-5.0) g/dL Specimen Type Urinblad Urine Color Yellow Urine Appearance Clear Urine pH 5.5 (5.0-9.0) Ur Specific [place] 1.025 (1.005-1.030) Urine Protein Trace H (NEGATIVE) mg/dL Urine Glucose (UA) Negative (NEGATIVE) mg/dL Urine Ketones Trace H (NEGATIVE) mg/dL Urine Occult Blood Negative (NEGATIVE) Urine Nitrite Negative (NEGATIVE) Urine Bilirubin Small H (NEGATIVE) Urine Urobilinogen 0.2 (0.2-1.0) E.U./dL Ur Leukocyte Esterase Trace H (NEGATIVE) U Hyaline Cast (Auto) Few Urine RBC Not seen /HPF Urine WBC 5-10 H /HPF Ur Epithelial Cells Few /LPF Urine Bacteria Few (NONE TO FEW) /HPF Urine Mucus Few H (NEGATIVE) /LPF Urine Yeast Rare H (NEGATIVE) /HPF Meds: Medications Generic Name Dose Route Start Last Admin Trade Name Madi PRN Reason Stop Dose Admin Sodium Chloride 10 ml 06/28/20 12:10 Saline Flush FLUSH ASDIRECTED PRN Keep Vein Open Discontinued Medications Generic Name Dose Route Start Last Admin Trade Name Freq PRN Reason Stop Dose Admin Sodium Chloride 1,000 mls @ 999 mls/hr 06/28/20 12:42 06/28/20 12:44 Normal Saline IV 06/28/20 13:42 999 mls/hr .BOLUS ONE Administration Sodium Chloride 1,000 mls @ 500 mls/hr 06/28/20 13:44 06/28/20 14:21 Normal Saline IV 06/28/20 15:43 500 mls/hr .BOLUS ONE Administration Iopamidol 100 ml 06/28/20 13:46 06/28/20 14:33 Isovue-370 (76%) IVPUSH 06/28/20 13:47 100 ml ONETIME STA Administration Promethazine HCl 25 mg 06/28/20 13:00 06/28/20 13:16 Phenergan IM 06/28/20 13:01 25 mg ONETIME ONE Administration - Re-Assessments/Exams Free Text/Narrative Re-Assessment/Exam: 06/28/20 16:37 Patient received IV phenergan and NS fluid bolus/felt much improved. No further emesis. DDimer noted to be much more increased today. Given clot risk in Covid patients and patient's SOB complaint, PE study ordered. Negative for PE but some scattered ground glass infiltrates consistent with Covid infection noted by Radiology. CBC normal. CMP overall unremarkable. No further intervention required at this time. To follow up tomorrow morning for additional IV fluid as outpatient. Departure - Departure Time of Disposition: 16:27 Disposition: Home, Self-Care 01 Condition: Good Clinical Impression: Dehydration, COVID-19 virus infection Nausea & vomiting Qualifiers: Vomiting type: unspecified Vomiting Intractability: non-intractable Qualified Code(s): R11.2 - Nausea with vomiting, unspecified - Discharge Information *PRESCRIPTION DRUG MONITORING PROGRAM REVIEWED*: Not Applicable *COPY OF PRESCRIPTION DRUG MONITORING REPORT IN PATIENT TOM: Not Applicable Referrals: Zunilda Sarabia PA-C [Primary Care Provider] - Forms: ED Department Discharge Additional Instructions: Continue current plan. Follow up tomorrow morning for additional IV fluids as an outpatient. Your labs looked good today. Your lung xray did not show any worsening changes. Follow up as needed if you have worsening problems. Sepsis Event Note (ED) - Evaluation Sepsis Screening Result: No Definite Risk - Focused Exam Vital Signs: Vital Signs Temp Pulse Resp BP Pulse Ox 06/28/20 12:07 36.3 C 93 16 127/80 95 - My Orders Last 24 Hours: My Active Orders 06/28/20 12:07 Isolation [COMM] Routine 06/28/20 12:10 Sodium Chloride 0.9% [Saline Flush] 10 ml FLUSH ASDIRECTED PRN Saline Lock Insert [OM.PC] Routine 06/28/20 12:11 Chest 1V Frontal [CR] Stat 06/28/20 13:43 PE Chest [Ang Chest] [CT] Stat 06/28/20 15:38 CULTURE URINE [RM] Routine - Assessment/Plan Last 24 Hours: My Active Orders 06/28/20 12:07 Isolation [COMM] Routine 06/28/20 12:10 Sodium Chloride 0.9% [Saline Flush] 10 ml FLUSH ASDIRECTED PRN Saline Lock Insert [OM.PC] Routine 06/28/20 12:11 Chest 1V Frontal [CR] Stat 06/28/20 13:43 PE Chest [Ang Chest] [CT] Stat 06/28/20 15:38 CULTURE URINE [RM] Routine
== END 2020-06-28 17:00 | disposition home or self-care (01) ==
LOC: LL.ED 12:01
DX: E86.0 Dehydration (principal); U07.1 COVID-19; R11.2 Nausea with vomiting, unspecified; E78.5 Hyperlipidemia, unspecified; M41.9 Scoliosis, unspecified; E03.9 Hypothyroidism, unspecified; J44.9 Chronic obstructive pulmonary disease, unspecified; Z88.8 Allergy status to other drugs, medicaments and biological substances; Z88.0 Allergy status to penicillin; Z88.1 Allergy status to other antibiotic agents; Z88.2 Allergy status to sulfonamides; Z79.899 Other long term (current) drug therapy
CPT/HCPCS: 36415; 71045; 71275; 80053; 81001; 83605; 83735; 85025; 85379; 87086; 96360; 96361; 96372; 99283; 99285-25; J2550; J7030; Q9967

== ENCOUNTER 2020-08-12 11:16 | Emergency (ER) | payer MEDICARE, BC ==
[2020-08-12 11:23] VITALS: BP 144/81; PULSE 93
[2020-08-12 12:50] LABS: CHLORIDE,CL 102 mmol/L (98-107); SODIUM,NA 137 mmol/L (136-145)
[2020-08-12] MEDS ORDERED: Sodium Chloride 0.9% 1,000 ML IV ONE (12:52)
--- NOTE | 2020-08-12 12:58 | EDM.PDOC ---
ED HPI GENERAL MEDICAL PROBLEM - General Chief Complaint: General Stated Complaint: weakness, dizzy Time Seen by Provider: 08/12/20 11:40 Source of Information: Reports: Patient History Limitations: Reports: No Limitations - History of Present Illness INITIAL COMMENTS - FREE TEXT/NARRATIVE: Patient sent here from [facility] for evaluation after she presented with complaints of recent GI illness. Presenting complaint says weakness, however she has felt weak since her Covid illness in May. That is not any worse. Overall she has been improving from Covid other than intermittent mild SOB and the continued issues with weakness. She is on Eliquis for PE related to recent Covid. Two days ago she accompanied her daughter to [place] and they did eat out at a restaurant. Upon returning home she took her regular meds. A little later she reported having a hot flash/felt warm all over and says her head felt funny. This was followed by multiple episodes of vomiting. No vomiting yesterday however. Appetite decreased yesterday and today. No diarrhea, but she wondered if she might be getting constipated when developing her initial symptoms two days ago and took a laxative (history of chronic constipation). Has been lightheaded at times since symptoms started (history of vertigo) No fevers/chills. No URI complaints. No new pain. HEENT/no acute changes Resp/ongoing very mild intermittent sensation SOB with deep breath but this is improving since Covid infection CV/No acute changes GI/nausea and emesis as noted above. Decreased appetite. No loose stools. No blood in stool/emesis. No current abdominal pain /no UTI complaints or other changes Neuro/intermittent dizziness as noted above. Hx of chronic vertigo. Has had issues with arms tingling/falling asleep since Covid infection. - Related Data Allergies Allergy/AdvReac Type Severity Reaction Status Date / Time ondansetron Allergy UNKNOWN Verified 08/12/20 11:23 [From Zofran (as hydrochloride)] Penicillins Allergy Hives Verified 08/12/20 11:23 azithromycin [From Zithromax] AdvReac Nausea and Verified 08/12/20 11:23 Vomiting cefprozil [From Cefzil] AdvReac Nausea and Verified 08/12/20 11:23 Vomiting ciprofloxacin [From Cipro] AdvReac Nausea and Verified 08/12/20 11:23 Vomiting ciprofloxacin HCl AdvReac Nausea and Verified 08/12/20 11:23 [From Cipro] Vomiting methylprednisolone AdvReac Nausea and Verified 08/12/20 11:23 [From Medrol] Vomiting Sulfa (Sulfonamide AdvReac Nausea and Verified 08/12/20 11:23 Antibiotics) Vomiting Home Meds: Home Meds Linaclotide [Linzess] 145 mcg PO Q3D 12/28/16 [History] Promethazine [Phenergan] 25 mg PO Q8H PRN #6 tablet 12/28/16 [Rx] Acetaminophen [Tylenol] 650 mg PO Q4H PRN tablet 03/05/18 [Rx] Levothyroxine Sodium [Synthroid] 25 mcg PO DAILY 06/18/19 [History] bisacodyL [Dulcolax] 10 mg PO Q3D 06/18/19 [History] Simvastatin [Zocor] 1 tab PO ASDIRECTED 06/23/20 [History] Naproxen Sodium [Aleve] 2 tab PO BID PRN 06/28/20 [History] Apixaban [Eliquis] 5 mg PO BID 08/12/20 [History] Past Medical History HEENT History: Reports: Allergic Rhinitis, Impaired Vision, Other (See Below) Other HEENT History: Patient wears glasses. Cardiovascular History: Reports: Blood Clots/VTE/DVT, Heart Murmur, High Cholesterol, Syncope Other Cardiovascular History: Moderate to severe hyperlipidemia/dyslipidemia. Near syncopal episode in 2010. Dependent lymphedema. Moderate tricuspid valve insufficiency by echocardiogram in 2019 as below. Respiratory History: Reports: COPD, Intubation, Previous, Other (See Below) Other Respiratory History: COPD by chest x-ray with no previous work-up or current medical therapy required. Gastrointestinal History: Reports: Chronic Constipation, Diverticulosis, Gastritis, GERD, Hemorrhoids, Hiatal Hernia, Other (See Below) Other Gastrointestinal History: Small hiatal hernia and mild gastritis by EGD and additional sigmoid diverticulosis by colonoscopy both on 06/12/2018. Benign left-sided hepatic cyst by CT scan on 06/30/2018. Chronic constipation with tortuous colon by colonoscopy as above. 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 Surgical menopause as below. Right ovarian cyst. History of cervical cancer as below with no radiation or chemotherapy required Musculoskeletal History: Reports: Arthritis, Back Pain, Chronic, Osteoarthritis, Osteoporosis, Other (See Below) Other Musculoskeletal History: Scoliosis. Neurological History: Reports: Headaches, Chronic, Migraines, Vertigo, Other (See Below) Other Neuro History: Right frontal lobe venous angioma by MRI scan on 12/01/13 Psychiatric History: Reports: Anxiety, Depression Endocrine/Metabolic History: Reports: Hypothyroidism, Other (See Below) Other Endocrine/Metabolic History: Hypoalbuminemia. Hyponatremia. Recurrent dehydration of unknown etiology. Hematologic History: Reports: Anemia, Blood Transfusion(s), Other (See Below) Other Hematologic History: Transfusion of 2 units of packed red blood cells post hysterectomy. Immunologic History: Reports: None Oncologic (Cancer) History: Reports: Cervix Other Oncologic History: Cervical cancer as above with hysterectomy as below required. Dermatologic History: Reports: None - Infectious Disease History Infectious Disease History: Reports: Chicken Pox, Measles, Mumps. Denies: C- Difficile, Meningitis, Mononucleosis, MRSA, Novel Coronavirus, Pertussis (Whoo ping Cough), Rheumatic Fever, Rubella, Scarlet Fever, Shingles, TB, VRE - Past Surgical History Head Surgeries/Procedures: Reports: None HEENT Surgical History: Reports: Naso-Sinus Surgery, Oral Surgery Other HEENT Surgeries/Procedures: [place] teeth extraction 4 in the . Sinus surgery in September 2015. Cardiovascular Surgical History: Reports: None Respiratory Surgical History: Reports: None GI Surgical History: Reports: Appendectomy, Colonoscopy, EGD, Polypectomy, Other (See Below) Other GI Surgeries/Procedures: EGD and colonoscopy on 06/12/2018. Previous rectal fissure repair. Female Surgical History: Reports: Hysterectomy, Nephrectomy, Tubal Ligation Other Female Surgeries/Procedures: Complete hysterectomy with left-sided nephrectomy secondary to cervical cancer at the [facility] in June 1985. Bilateral tubal ligation in 1980. Urostomy in 1984 as above with subsequent reversal. Endocrine Surgical History: Reports: None Neurological Surgical History: Reports: None Musculoskeletal Surgical History: Reports: None Oncologic Surgical History: Reports: None Dermatological Surgical History: Reports: None - Past Imaging History Past Imaging History: Reports: Cardiac Echo (02/17/2019 with ejection fraction of 65-70% and otherwise results as above.), Carotid US (01/20/2020 and 06/28/16), CAT Scan (CT of the sinuses on 08/20/13. CT of the head on 06/28/16, 02/22/16, and 11/24/13. CTA of the chest on 02/14/16. CT of the abdomen and pelvis on 06/30/2018 and 02/14/16.), Mammogram (Last mammogram on 11/23/2019.), MRA (MRA of the brain and neck on 12/01/13), MRI (MRI of the brain on 12/01/13), Stress Testing (Overall negative Cardiolite stress test on 03/06/2018 with ejection fraction of 84% and questionable inferior diaphragmatic artifact increased from previous Cardiolite stress test on 06/25/13 with ejection fraction of 69% at that time with additional previous evaluation on 11/23/10.), Ultrasound (Bladder ultrasound on 03/17/13. Left breast ultrasound on 11/08/11.) Social & Family History - Family History HEENT: Reports: Allergic Rhinitis, Cataract, Macular Degeneration, Other (See Below) Other HEENT Family History: Father with nasal polyps and allergic rhinitis. Father with macular degeneration. Mother with cataracts. Cardiac: Reports: Bypass, CAD, Cardiomyopathy, Heart Failure, High Cholesterol, Hypertension, Other (See Below) Other Cardiac Family History: Mother with four-vessel CABG at age 80 with fatal CHF at age 89. No history of [place]. Hyperlipidemia in 3 brothers and 1 sister. 2 brothers with hypertension. Respiratory: Reports: None GI: Reports: Inflammatory Bowel Disease, Pancreatitis, Other (See Below) Other GI Family History: Daughter with ulcerative colitis. Pancreatic cancer with pancreatitis in 2 maternal great aunts as below. : Reports: None OBGYN: Reports: None Musculoskeletal: Reports: Arthritis, Osteoarthritis Neurological: Reports: CVA, Other (See Below) Other Neurological Family History: Paternal grandfather with CVA in his 70s fatal secondary to subsequent complications a few years later. Psychiatric: Reports: None Endocrine/Metabolic: Reports: Diabetes, type II, Other (See Below) Other Endocrine/Metabolic Family History: Brother with diabetes mellitus Hematologic: Reports: None Immunologic: Reports: None Dermatologic: Reports: None Oncologic: Reports: Liver, Metastatic, Pancreatic, Skin, Other (See Below) Other Oncologic Family History: Maternal grandfather from unknown type of cancer possibly hepatic with secondary pulmonary metastases fatal in his 60s. He did use tobacco. 2 paternal uncles with unknown type of fatal cancer in their 60s although one with apparent bone cancer and another with unknown primary but metastatic in nature. Maternal great aunts 2 with fatal pancreatic cancer in their 90s. Brother with unknown type of skin cancer. - Tobacco Use Tobacco Use Status *Q: Never Tobacco User Second Hand Smoke Exposure: No - Caffeine Use Caffeine Use: Reports: Coffee - Recreational Drug Use Recreational Drug Use: No - Living Situation & Occupation Living situation: Reports: (1972, 4 children) Occupation: Retired (Retired from [email or web address] at age 59) ED ROS GENERAL - Review of Systems Review Of Systems: Comprehensive ROS is negative, except as noted in HPI. ED EXAM, GENERAL - Physical Exam Exam: See Below Exam Limited By: No Limitations General Appearance: Alert, WD/WN, No Apparent Distress Eye Exam: Bilateral Eye: EOMI, PERRL Ears: Normal External Exam, Hearing Grossly Normal Nose: No: Nasal Deformity, Nasal Swelling, Nasal Drainage Throat/Mouth: Normal Lips, Normal Voice, No Airway Compromise Head: Atraumatic, Normocephalic Neck: Supple Respiratory/Chest: No Respiratory Distress, Lungs Clear, Normal Breath Sounds, No Accessory Muscle Use Cardiovascular: Regular Rate, Rhythm, No Edema, No Murmur GI/Abdominal: Normal Bowel Sounds, Soft, Non-Tender, No Distention (Female) Exam: Deferred Rectal (Female) Exam: Deferred Back Exam: No: CVA Tenderness (L), CVA Tenderness (R), Muscle Spasm Extremities: Normal Range of Motion, Non-Tender, Normal Capillary Refill Neurological: Alert, Oriented, Normal Cognition, Normal Gait, No Motor/Sensory Deficits Psychiatric: Normal Affect, Normal Mood Skin Exam: Warm, Dry, Intact, Normal Color Course - Vital Signs Last Recorded V/S: Last Vital Signs Temp 36.0 C L 08/12/20 11:20 Pulse 93 08/12/20 11:20 Resp 18 08/12/20 11:20 BP 144/81 H 08/12/20 11:20 Pulse Ox 100 08/12/20 11:20 - Orders/Labs/Meds Orders: Active Orders 24 hr Category Date Time Status Abdomen 1V Upright [CR] Stat Exams 08/12/20 11:53 Taken Chest 2V [CR] Stat Exams 08/12/20 11:52 Taken Labs: Laboratory Tests 08/12/20 08/12/20 08/12/20 Range/Units 12:00 12:06 12:06 WBC 8.2 (4.0-10.2) K/uL RBC 4.38 (3.77-5.09) M/uL Hgb 13.4 (11.7-15.5) g/dL Hct 40.9 (34.0-46.0) % MCV 93.4 (84.0-98.0) fL MCH 30.6 (28.2-33.3) pg MCHC 32.8 (31.7-36.0) g/dL RDW 14.3 H (11.2-14.1) % Plt Count 348 (150-350) K/uL Neut % (Auto) 74.6 (45.0-80.0) % Lymph % (Auto) 16.6 (10.0-50.0) % [place] % (Auto) 7.9 (2.0-14.0) % Eos % (Auto) 0.5 (0.0-5.0) % Baso % (Auto) 0.4 (0.0-2.0) % Neut # (Auto) 6.11 (1.40-7.00) K/uL Lymph # (Auto) 1.36 (0.50-3.50) K/uL [place] # (Auto) 0.65 (0.00-1.00) K/uL Eos # (Auto) 0.04 (0.00-0.50) K/uL Baso # (Auto) 0.03 (0.00-0.20) K/uL Sodium 137 (136-145) mmol/L Potassium 3.7 (3.5-5.1) mmol/L Chloride 102 (98-107) mmol/L Carbon Dioxide 25.1 (21.0-32.0) mmol/L BUN 11 (7-18) mg/dL Creatinine 0.87 (0.51-1.17) mg/dL Est Cr Clr Drug Dosing 48.99 mL/min Estimated GFR (MDRD) > 60 mL/min Glucose 109 H (74-106) mg/dL Lactic Acid (0.4-2.0) mmol/L Calcium 9.1 (8.5-10.1) mg/dL Magnesium 2.2 (1.8-2.4) mg/dL Total Bilirubin 0.5 (0.2-1.0) mg/dL AST 20 (15-37) U/L ALT 23 (12-78) U/L Alkaline Phosphatase 83 (46-116) IU/L Total Protein 7.2 (6.4-8.2) g/dL Albumin 3.8 (3.4-5.0) g/dL TSH, Ultra Sensitive (0.358-3.740) mIU/mL Specimen Type Urincc Urine Color Yellow Urine Appearance Clear Urine pH 5.0 (5.0-9.0) Ur Specific [place] <= 1.005 (1.005-1.030) Urine Protein Negative (NEGATIVE) mg/dL Urine Glucose (UA) Negative (NEGATIVE) mg/dL Urine Ketones Negative (NEGATIVE) mg/dL Urine Occult Blood Negative (NEGATIVE) Urine Nitrite Negative (NEGATIVE) Urine Bilirubin Negative (NEGATIVE) Urine Urobilinogen 0.2 (0.2-1.0) E.U./dL Ur Leukocyte Esterase Negative (NEGATIVE) Urine RBC 0-5 /HPF Urine WBC Not seen /HPF Urine Bacteria Not seen (NONE TO FEW) /HPF 08/12/20 08/12/20 Range/Units 12:06 12:06 WBC (4.0-10.2) K/uL RBC (3.77-5.09) M/uL Hgb (11.7-15.5) g/dL Hct (34.0-46.0) % MCV (84.0-98.0) fL MCH (28.2-33.3) pg MCHC (31.7-36.0) g/dL RDW (11.2-14.1) % Plt Count (150-350) K/uL Neut % (Auto) (45.0-80.0) % Lymph % (Auto) (10.0-50.0) % [place] % (Auto) (2.0-14.0) % Eos % (Auto) (0.0-5.0) % Baso % (Auto) (0.0-2.0) % Neut # (Auto) (1.40-7.00) K/uL Lymph # (Auto) (0.50-3.50) K/uL [place] # (Auto) (0.00-1.00) K/uL Eos # (Auto) (0.00-0.50) K/uL Baso # (Auto) (0.00-0.20) K/uL Sodium (136-145) mmol/L Potassium (3.5-5.1) mmol/L Chloride (98-107) mmol/L Carbon Dioxide (21.0-32.0) mmol/L BUN (7-18) mg/dL Creatinine (0.51-1.17) mg/dL Est Cr Clr Drug Dosing mL/min Estimated GFR (MDRD) mL/min Glucose (74-106) mg/dL Lactic Acid 1.9 (0.4-2.0) mmol/L Calcium (8.5-10.1) mg/dL Magnesium (1.8-2.4) mg/dL Total Bilirubin (0.2-1.0) mg/dL AST (15-37) U/L ALT (12-78) U/L Alkaline Phosphatase (46-116) IU/L Total Protein (6.4-8.2) g/dL Albumin (3.4-5.0) g/dL TSH, Ultra Sensitive 1.839 (0.358-3.740) mIU/mL Specimen Type Urine Color Urine Appearance Urine pH (5.0-9.0) Ur Specific [place] (1.005-1.030) Urine Protein (NEGATIVE) mg/dL Urine Glucose (UA) (NEGATIVE) mg/dL Urine Ketones (NEGATIVE) mg/dL Urine Occult Blood (NEGATIVE) Urine Nitrite (NEGATIVE) Urine Bilirubin (NEGATIVE) Urine Urobilinogen (0.2-1.0) E.U./dL Ur Leukocyte Esterase (NEGATIVE) Urine RBC /HPF Urine WBC /HPF Urine Bacteria (NONE TO FEW) /HPF Meds: Medications Discontinued Medications Generic Name Dose Route Start Last Admin Trade Name Freq PRN Reason Stop Dose Admin Sodium Chloride 1,000 mls @ 500 mls/hr 08/12/20 12:52 08/12/20 13:03 Normal Saline IV 08/12/20 14:51 500 mls/hr .BOLUS ONE Administration Meclizine HCl 25 mg 08/12/20 13:16 Antivert PO 08/12/20 13:17 ONETIME ONE - Radiology Interpretation Free Text/Narrative:: Chest/abdominal xray showed no acute changes. - Re-Assessments/Exams Free Text/Narrative Re-Assessment/Exam: 08/12/20 13:12 Labs, including CBC/Chem/Mg/Lactic/UA overall unremarkable. No focal findings on exam. Suspect that she may have had new gastroenteritis/cannot rule out food-related given trip to restaurant. Fatigue is long-standing as is arm tingling complaint and originated with Covid infection. 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 These two symptoms are not acutely worse. Plan at this time is to give bolus of NS to patient and discharge her home. She is to continue to observe for changes over the weekend as see if she continues to improve. Patient is agreeable with plan. To follow up as needed. Departure - Departure Time of Disposition: 15:38 Disposition: Home, Self-Care 01 Condition: Good Clinical Impression: Gastroenteritis, Dehydration - Discharge Information *PRESCRIPTION DRUG MONITORING PROGRAM REVIEWED*: Not Applicable *COPY OF PRESCRIPTION DRUG MONITORING REPORT IN PATIENT TOM: Not Applicable Referrals: Zunilda Sarabia PA-C [Primary Care Provider] - Forms: ED Department Discharge Additional Instructions: See how you feel over the weekend and after you have had the IV fluids. Observe for symptoms changes. Follow up as needed if you have additional problems or concerns. Consider picking up Meclizine and taking a 25mg tab every 6 hours as needed for lightheaded feeling. This is [id number] and does not require a prescription. Look at developing a more anti-inflammatory diet to help combat the chronic lingering Covid symptoms. Avoid ANY processed food/sugar/flour/baked goods/candy. Focus on eating whole foods such as meat/fish/eggs and veggies. O K to add some butter/olive oil. Add Vitamin D with K 5000 units daily CoQ10 100mg daily (you NEED this if you are on a statin for cholesterol) Magnesium Glycinate 250mg daily Fish oil 1-2grams daily Greens powder mix You can find all of these at the [employer]. You can also become a member of [employer] online and order through them easily Sepsis Event Note (ED) - Evaluation Sepsis Screening Result: No Definite Risk - Focused Exam Vital Signs: Vital Signs Temp Pulse Resp BP Pulse Ox 08/12/20 11:20 36.0 C L 93 18 144/81 H 100 - My Orders Last 24 Hours: My Active Orders 08/12/20 11:52 Chest 2V [CR] Stat 08/12/20 11:53 Abdomen 1V Upright [CR] Stat - Assessment/Plan Last 24 Hours: My Active Orders 08/12/20 11:52 Chest 2V [CR] Stat 08/12/20 11:53 Abdomen 1V Upright [CR] Stat
[2020-08-12] MEDS ORDERED: Meclizine 25 MG Tab PO ONE (13:16)
== END 2020-08-12 15:50 | disposition home or self-care (01) ==
LOC: LL.ED 11:16
DX: E86.0 Dehydration (principal); K52.9 Noninfective gastroenteritis and colitis, unspecified; E78.00 Pure hypercholesterolemia, unspecified; J44.9 Chronic obstructive pulmonary disease, unspecified; M19.90 Unspecified osteoarthritis, unspecified site; E03.9 Hypothyroidism, unspecified; Z88.8 Allergy status to other drugs, medicaments and biological substances; Z88.0 Allergy status to penicillin; Z88.1 Allergy status to other antibiotic agents; Z88.2 Allergy status to sulfonamides; Z79.899 Other long term (current) drug therapy; Z79.01 Long term (current) use of anticoagulants
CPT/HCPCS: 36415; 71046; 74018; 80053; 81001; 83605; 83735; 84443; 85025; 99285-25; J7030